=== PATIENT | male | born 1970 | race Two or more races ===

== ENCOUNTER 2020-08-13 09:52 | Outpatient (REF) | payer OTHER, SELFPAY ==
[2020-08-13 14:40] LABS: Alanine Aminotransferase 37 U/L (0-40); Alkaline Phosphatase 105 U/L (39-117); Anion Gap 14 (12-20); Aspartate Amino Transferase 20 U/L (5-37); Bilirubin Total 0.7 mg/dL (0.0-1.0); Blood Urea Nitrogen 12 mg/dL (9-16); Calcium 8.6 mg/dL (8.4-10.2); Carbon Dioxide 24 mmol/L (22-29); Chloride 106 mmol/L (96-108); Cholesterol 111 mg/dL; Estimated Glomerular Filt Rate > 60; Glucose Fasting 85 mg/dL (60-99); HDL Cholesterol 45 mg/dL; LDL Cholesterol Calculated 53 mg/dl; Potassium 3.7 mmol/l (3.3-5.1); Sodium 140 mmol/L (135-145); Total Protein 7.1 g/dL (6.5-8.0); Triglycerides 66 mg/dL
[2020-08-13 14:58] LABS: Creatinine Urine 235.14 mg/dL; Microalbum/Creatinine Ratio Ur 10.6 ug/mg cr
[2020-08-13 15:01] LABS: TSH reflex Free T4 < 0.01 mIU/mL (0.32-4.0)
[2020-08-13 16:08] LABS: Free T4 (Free Thyroxine) 1.56 ng/dL (0.71-1.85)
== END 2020-08-13 09:53 | disposition home or self-care (01) ==
LOC: HO.WFDLDS 09:52
PROVIDERS: Visit Provider Family Medicine
DX: Z00.00 Encounter for general adult medical examination without abnormal findings (principal); R03.0 Elevated blood-pressure reading, without diagnosis of hypertension; E78.5 Hyperlipidemia, unspecified; I10 Essential (primary) hypertension
CPT/HCPCS: 80053; 80061; 82043; 84439; 84443

== ENCOUNTER 2020-09-27 10:20 | Outpatient (REF) | payer OTHER, SELFPAY ==
[2020-09-27 14:29] LABS: Alanine Aminotransferase 57 U/L (0-40); Albumin Level 4.1 g/dL (3.5-5.0); Alkaline Phosphatase 105 U/L (39-117); Aspartate Amino Transferase 24 U/L (5-37); Bilirubin Direct 0.3 mg/dL (0.0-0.5); Bilirubin Total 0.7 mg/dL (0.0-1.0); Total Protein 7.2 g/dL (6.5-8.0)
[2020-09-27 14:39] LABS: Free T4 (Free Thyroxine) 1.43 ng/dL (0.71-1.85); Thyroid Stimulating Hormone < 0.01 uIU/mL (0.32-4.0)
[2020-09-28 19:07] LABS: Triiodothyronine T3 Total 144 ng/dL (76-181)
== END 2020-09-27 10:21 | disposition home or self-care (01) ==
LOC: HO.WFDLDS 10:20
PROVIDERS: Visit Provider Family Medicine
DX: R79.89 Other specified abnormal findings of blood chemistry (principal); B35.1 Tinea unguium
CPT/HCPCS: 80076; 84439; 84443; 84480

== ENCOUNTER 2020-10-12 09:19 | Outpatient (REF) | payer OTHER, SELFPAY ==
[2020-10-12 11:18] LABS: Alanine Aminotransferase 38 U/L (0-40); Alkaline Phosphatase 108 U/L (39-117); Aspartate Amino Transferase 22 U/L (5-37); Bilirubin Direct 0.3 mg/dL (0.0-0.5); Bilirubin Total 0.5 mg/dL (0.0-1.0); Total Protein 6.9 g/dL (6.5-8.0)
== END 2020-10-12 09:20 | disposition home or self-care (01) ==
LOC: HO.WFDLDS 09:19
PROVIDERS: Visit Provider Family Medicine
DX: B35.1 Tinea unguium (principal); R74.01 Elevation of levels of liver transaminase levels
CPT/HCPCS: 80076

== ENCOUNTER 2020-12-03 09:19 | Outpatient (REF) | payer OTHER, SELFPAY ==
--- NOTE | ~2020-12-03 | US_ITS ---
EXAMINATION: US SCROTUM CLINICAL INFORMATION: Left testicular and scrotal pain.. COMPARISON: None TECHNIQUE: A sonogram of the scrotum was performed assessing roach-scale appearance and color Doppler flow. Spectral Doppler analysis of the arterial and venous flow were performed in the testes bilaterally. FINDINGS: RIGHT: Right testicle measures 3.5 x 2.10 x 2.5 cm, volume 9.69 mL. No focal testicular parenchymal lesions are visualized. Spectral Doppler analysis of the arterial and venous flow is normal in the right testis. Right epididymal head is normal in size. No right hydrocele or varicocele is seen. Right epididymal Doppler flow is normal. LEFT: Left testicle measures 3.62 x 1.99 x 2.51 cm, volume 9.49 mL. No focal testicular parenchymal lesions are visualized. Spectral Doppler analysis of the arterial and venous flow is normal in the left testis. Left epididymal head is normal in size. There is a small left hydrocele. No varicocele is seen.. Left epididymal Doppler flow is slightly increased. Just superior to left testes and the epididymis is a heterogenous area appearing contiguous to the inguinal region suspicious for inguinal hernia containing fat. There is no peristalsis or any significant movement with coughing. US/US scrotum doppler IMPRESSION: Most likely left inguinal hernia extending to the root of scrotum containing fat. No peristalsis seen. Patient is tender in this region. Question incarceration. Correlate with clinical exam and if clinically indicated a CT pelvis. Small left hydrocele. Suspect mild left epididymitis. No focal mass seen. Normal scrotum and vascular flow. Normal right epididymis.
--- NOTE | ~2020-12-03 | US_ITS ---
EXAMINATION: US SCROTUM CLINICAL INFORMATION: Left testicular and scrotal pain.. COMPARISON: None TECHNIQUE: A sonogram of the scrotum was performed assessing roach-scale appearance and color Doppler flow. Spectral Doppler analysis of the arterial and venous flow were performed in the testes bilaterally. FINDINGS: RIGHT: Right testicle measures 3.5 x 2.10 x 2.5 cm, volume 9.69 mL. No focal testicular parenchymal lesions are visualized. Spectral Doppler analysis of the arterial and venous flow is normal in the right testis. Right epididymal head is normal in size. No right hydrocele or varicocele is seen. Right epididymal Doppler flow is normal. LEFT: Left testicle measures 3.62 x 1.99 x 2.51 cm, volume 9.49 mL. No focal testicular parenchymal lesions are visualized. Spectral Doppler analysis of the arterial and venous flow is normal in the left testis. Left epididymal head is normal in size. There is a small left hydrocele. No varicocele is seen.. Left epididymal Doppler flow is slightly increased. Just superior to left testes and the epididymis is a heterogenous area appearing contiguous to the inguinal region suspicious for inguinal hernia containing fat. There is no peristalsis or any significant movement with coughing. US/US scrotum IMPRESSION: Most likely left inguinal hernia extending to the root of scrotum containing fat. No peristalsis seen. Patient is tender in this region. Question incarceration. Correlate with clinical exam and if clinically indicated a CT pelvis. Small left hydrocele. Suspect mild left epididymitis. No focal mass seen. Normal scrotum and vascular flow. Normal right epididymis.
[2020-12-03 11:20] LABS: MANUAL DIFF FLAG NO
[2020-12-03 11:31] LABS: Basophils Absolute Auto 0.1 X10*3/uL (0.0-0.2); Basophils Percent Auto 0.7 % (0-2); Eosinophils Absolute Auto 0.2 X10*3/uL (0.0-0.4); Eosinophils Percent Auto 2.4 % (0-4); Hematocrit 43.2 % (42-52); Hemoglobin 14.4 g/dl (14.0-18.0); Imm Gran Abs Auto 0.04 X10*3/uL (0.00-0.03); Imm Gran Pct Auto 0.4 % (0.0-0.4); Lymphocytes Absolute Auto 2.7 X10*3/uL (1.2-4.9); Lymphocytes Percent Auto 27.1 % (20-40); Mean Corpuscular HGB Conc 33.3 g/dl (31.0-36.0); Mean Platelet Volume 10.4 fL (9.4-12.4); Monocytes Absolute Auto 1.4 X10*3/uL (0.1-1.2); Monocytes Percent Auto 13.9 % (2-11); Neutrophils Absolute Auto 5.6 X10*3/uL (2.0-8.3); Neutrophils Percent Auto 55.5 % (45-73); Platelet Count 286 X10*3/uL (160-400); Red Blood Count 5.14 X10*6/uL (4.60-5.80); Red Cell Distribution Width 12.6 % (11.0-16.0); White Blood Count 10.1 X10*3/uL (4.8-10.8)
[2020-12-03 11:53] LABS: Alanine Aminotransferase 39 U/L (0-40); Albumin Level 4.2 g/dL (3.5-5.0); Alkaline Phosphatase 112 U/L (39-117); Anion Gap 14 (12-20); Aspartate Amino Transferase 26 U/L (5-37); Bilirubin Total 0.7 mg/dL (0.0-1.0); Blood Urea Nitrogen 12 mg/dL (9-16); Calcium 9.1 mg/dL (8.4-10.2); Carbon Dioxide 26 mmol/L (22-29); Chloride 103 mmol/L (96-108); Estimated Glomerular Filt Rate > 60; Glucose Random 80 mg/dL (60-115); Lipase 60 U/L (8-78); Sodium 139 mmol/L (135-145); Total Protein 7.5 g/dL (6.5-8.0)
== END 2020-12-03 09:20 | disposition home or self-care (01) ==
LOC: HO.HMGCX 09:19
PROVIDERS: PCP Family Medicine; Visit Provider Nurse Practitioner Family
DX: R10.9 Unspecified abdominal pain (principal); N50.812 Left testicular pain; N50.89 Other specified disorders of the male genital organs
CPT/HCPCS: 36415; 76870; 80053; 83690; 85025; 93975

== ENCOUNTER 2020-12-03 23:14 | Inpatient (IN) | payer OTHER, SELFPAY ==
--- NOTE | ~2020-12-03 | CT_ITS ---
EXAMINATION: CT ABDOMEN AND PELVIS WITH CONTRAST CLINICAL INFORMATION: Concern for incarcerated hernia. COMPARISON: 12/03/2020. TECHNIQUE: Contiguous axial thin section helical images of the abdomen and pelvis were performed following the administration of 100 mL of intravenous Omnipaque 300. The data set was reformatted in the coronal and sagittal planes and reviewed on an independent workstation. DLP: 1045 mGy-cm. FINDINGS: The visualized lung bases are clear. The visualized portions of the heart are unremarkable. The liver is of normal size and attenuation without focal lesions nor intrahepatic biliary ductal dilation. There are 2 calculi within the gallbladder lumen. There is no wall thickening or discernible pericholecystic fluid. The spleen, pancreas, adrenal glands are unremarkable. Both kidneys are of normal size and attenuation without hydronephrosis. Within the lower pole of the right kidney, there is a nonobstructive 4 mm calculus. Within the upper pole of the left kidney, there is a nonobstructive 2 mm calculus. Following the administration of IV contrast, prompt symmetric nephrograms are displayed. There is no abdominal free fluid. There is neither mesenteric nor retroperitoneal lymphadenopathy. There is a left inguinal hernia containing fat and a nubbin of sigmoid colon that extends just to the orifice of the inguinal canal. There is no associated obstruction. Otherwise, unremarkable unopacified loops of small and large bowel are identified. There is no pelvic free fluid. The urinary bladder is unremarkable. There is neither pelvic nor inguinal lymphadenopathy. Bone windows: Neither sclerotic nor lytic bone lesions are identified. CT/CT abdomen pelvis w con IMPRESSION: Left-sided and bowel containing inguinal hernia with a small nubbin of sigmoid colon within the left inguinal canal near the orifice without associated obstruction. There is a small amount of fat infiltration present. Cholelithiasis without evidence of cholecystitis. Nonobstructive renal calculi bilaterally. Automated exposure control (Care Dose) Adjustment of the mA and/or kv according to patient size (this includes techniques or standardized protocols for targeted exams where dose is matched to indication / reason for exam; i.e. extremities or head).
[2020-12-03 23:19] VITALS: BP 138/90; PULSE 85; RESP 24; TEMP 37.2; O2SAT 96; BMI 32.1
[2020-12-03 23:37] LABS: MANUAL DIFF FLAG NO
[2020-12-03 23:38] LABS: Basophils Absolute Auto 0.1 X10*3/uL (0.0-0.2); Basophils Percent Auto 0.6 % (0-2); Eosinophils Absolute Auto 0.2 X10*3/uL (0.0-0.4); Eosinophils Percent Auto 2.1 % (0-4); Hematocrit 41.2 % (42-52); Imm Gran Abs Auto 0.03 X10*3/uL (0.00-0.03); Imm Gran Pct Auto 0.3 % (0.0-0.4); Lymphocytes Absolute Auto 1.6 X10*3/uL (1.2-4.9); Lymphocytes Percent Auto 17.8 % (20-40); Mean Corpuscular Hemoglobin 28.1 pg (27.0-33.0); Mean Corpuscular Volume 82.6 fL (80-98); Mean Platelet Volume 9.9 fL (9.4-12.4); Monocytes Absolute Auto 1.2 X10*3/uL (0.1-1.2); Monocytes Percent Auto 13.5 % (2-11); Neutrophils Absolute Auto 5.9 X10*3/uL (2.0-8.3); Neutrophils Percent Auto 65.7 % (45-73); Platelet Count 251 X10*3/uL (160-400); Red Blood Count 4.99 X10*6/uL (4.60-5.80); Red Cell Distribution Width 12.9 % (11.0-16.0)
[2020-12-04] VITALS (17 sets, daily range): BP systolic 107–160; BP diastolic 59–91; PULSE 65–82; RESP 12–20; TEMP 36.2–36.9; O2SAT 95–99; BMI 32.8
[2020-12-04 00:04] LABS: Alanine Aminotransferase 34 U/L (0-40); Alkaline Phosphatase 112 U/L (39-117); Anion Gap 12 (12-20); Aspartate Amino Transferase 19 U/L (5-37); Bilirubin Total 1.1 mg/dL (0.0-1.0); Blood Urea Nitrogen 13 mg/dL (9-16); Calcium 8.9 mg/dL (8.4-10.2); Carbon Dioxide 23 mmol/L (22-29); Chloride 107 mmol/L (96-108); Estimated Glomerular Filt Rate > 60; Glucose Random 111 mg/dL (60-115); Sodium 138 mmol/L (135-145); Total Protein 7.1 g/dL (6.5-8.0)
--- NOTE | 2020-12-04 00:34 | PC.NURSE ---
Pt moved from 19H into room 19 for eval. MD at bedside for primary eval. Pt is CAOx4, speaking full sentences, reports pain/swelling to left testicle for 1-2 days. Pt had an U/S earlier this morning, states he was called by his MD and told to go to the ER due to testicular torsion. Pt aware of pending urine sample but states he just went to the bathroom. VSS at this time. Plan for IV access once MD is done with physical exam.
--- NOTE | 2020-12-04 00:50 | PC.NURSE ---
IV established, lactic obtained and sent. BCX obtained but no order in the system as of yet. Pt off to CT immediately. Med Rec complete per list provided by pt. Awaiting return from CT.
--- NOTE | 2020-12-04 01:00 | PC.NURSE ---
Pt returns from CT on hospital bed without incident. Pt medicated per DEC for 8/10 pain. VSS at this time. Call ramos within reach, continue to monitor.
[2020-12-04] MEDS: iohexoL 350 MG/ML 100 ML INFUS..BTL 85 ML IV (01:02)
[2020-12-04] MEDS: Morphine Sulfate 2 MG/ML CARTRIDGE 1 MG IVPUSH (01:08)
[2020-12-04 01:12] LABS: Lactic Acid 0.9 mmol/L (0.5-2.0)
--- NOTE | 2020-12-04 01:39 | ED_ITS ---
HPI - Male Genitourinary General Chief complaint: Urogenital-Male Stated complaint: Abnormal ultrasound Time Seen by Provider: 12/04/20 00:29 Source: patient Mode of arrival: ambulatory Limitations: no limitations History of Present Illness HPI Narrative: 50-year-old male otherwise healthy presented with left-sided lower abdominal/left scrotal pain for 24 hours, patient was seen by his PCP as an outpatient had left scrotal ultrasound which showed left inguinal hernia extending to the root of the scrotum, with normal testicular ultrasound and vascular flow to the testicles. Patient came in with persisting of left-sided abdominal pain, no nausea, no vomiting, pain started 24 hours ago, described as severe (10/10) and is constant, pain is localized to the left groin area and left scrotum, no radiation, patient had a normal bowel movement and passing gas as, no fever or chills. Related Data Home Medications Medication Instructions Recorded Confirmed omeprazole 40 mg PO DAILY 12/04/20 12/04/20 Previous Rx's Medication Instructions Recorded amlodipine 5 mg tablet 5 mg PO DAILY 90 Days #90 tab 08/31/20 aspirin 81 mg tablet,delayed 81 mg PO DAILY 90 Days #90 tab 08/31/20 release atorvastatin 40 mg tablet 40 mg PO DAILY 90 Days #90 tab 08/31/20 lisinopril 20 mg tablet 20 mg PO DAILY 90 Days #90 tab 08/31/20 Allergies Allergy/AdvReac Type Severity Reaction Status Date / Time No Known Allergies Allergy Verified 12/03/20 08:18 Review of Systems Review of Systems: All other systems are reviewed and are negative Constitutional: Reports as per HPI and Reports no additional constitutional complaints Eyes: Reports as per HPI and Reports no additional eye complaints Reports system reviewed and no additional complaints, except as documented Cardiovascular: Reports as per HPI and Reports no additional cardiovascular complaints Respiratory: Reports as per HPI and Reports no additional respiratory complaints Gastrointestinal: Reports as per HPI and Reports no additional gastrointestinal complaints Genitourinary: Reports no additional female genitourinary complaints Musculoskeletal: Reports no additional musculoskeletal complaints Skin/Breast: Reports system reviewed and no additional complaints, except as docu Psychiatric: Reports no additional psychiatric complaints Endocrine: Reports no additional endocrine complaints Hematologic/Lymphatic: Reports no additional hematologic/lymphatic complaints Allergic/Immunologic: Reports no additional allergic/immunologic complaints Reports system reviewed and no additional complaints, except as documented and Reports Abnormal speech present [facility] Past Medical History Medical History Anxiety Chest pain due to psychological stress Essential hypertension H/O: CVA (cerebrovascular accident) Hyperlipidemia Insomnia Stroke Social History Social History Advance Directives: No Physical Exam Vital Signs: Vital Signs: Last Vital Signs Temp 98.4 F 12/04/20 00:00 Pulse 71 12/04/20 01:12 Resp 16 12/04/20 01:12 BP 140/87 H 12/04/20 01:12 Pulse Ox 98 12/04/20 00:00 Body Mass Index 32.1 Vital signs have been reviewed as normal and appeared to be correct. Blood pressure in the high range. Heart rate normal. Respiration rate normal. Temperature normal. Oxygen saturation normal. Appearance: Alert. Oriented X3. No acute distress. Head: Normal external exam. Normocephalic. Atraumatic. No Williamson signs noted. No raccoon eyes noted Eyes: PERRLA. EOMI. Conjunctiva and sclera normal. Eyelids normal. ENT: EAC normal. TM's Normal. Pharynx normal. Uvula midline. Moist mucous membranes. No trismus noted. No drooling noted. No muffled voice noted. Neck: Normal inspection. Neck supple. FROM. No adenopathy. Thyroid Normal. No meningeal signs. No neck mass noted. CVS: Normal heart rate and rhythm. Heart sound normal. No murmurs noted. Pulses normal throughout. Respiratory: No respiratory distress. Painless inspiration. Breath sounds normal. No wheezes/rales/rhonchi noted. Chest nontender. No accessory muscle usage noted or decreased air movement noted. Abdomen: Soft, left lower quadrant tenderness, no rebound, no guarding, fullness of the left groin area, very tender to touch, no redness or hotness of the skin above it. Bowel sounds normal in all 4 quadrants. No distention noted. No organomegaly noted. No visible injury noted. exam: Testicle is not tender or swollen, positive cremaster reflex bilaterally, fullness in the left scrotal area likely herniated bowel Back: No CVA tenderness. Full range of motion noted. Skin: Skin warm and dry. Normal skin color. Normal skin turgor. No rashes/lesions/lacerations noted. Extremities: No lower extremity edema. Extremities exhibit normal range of motion. Extremities nontender. Neuro: Oriented X 3. No motor deficit. No sensory deficit. Reflexes normal. Course Course Course Narrative: 50-year-old male for 24 hours of left lower abdominal/left groin pain. Labs are unremarkable. Normal leukocytosis, normal lactic acid. CT/ultrasound abdomen and pelvis and groin are consistent with left inguinal hernia with no obstruction. NPO/pain medication p.r.n./IV fluids/the case discussed with Dr. Iniguez from surgery, who will admit the patient and reassess. MDM - Male Genitourinary Lab Data Attestation: I reviewed the patient's lab results. Result diagrams: 12/03/20 23:28 12/03/20 23:28 Labs: Lab Results 12/03/20 12/03/20 12/03/20 Range/Units 23:28 23:28 23:28 WBC 9.0 (4.8-10.8) X10*3/uL RBC 4.99 (4.60-5.80) X10*6/uL Hgb 14.0 (14.0-18.0) g/dl Hct 41.2 L (42-52) % MCV 82.6 (80-98) fL MCH 28.1 (27.0-33.0) pg MCHC 34.0 (31.0-36.0) g/dl RDW 12.9 (11.0-16.0) % Plt Count 251 (160-400) X10*3/uL MPV 9.9 (9.4-12.4) fL Immature Gran % (Auto) 0.3 (0.0-0.4) % Neut % (Auto) 65.7 (45-73) % Lymph % (Auto) 17.8 L (20-40) % [place] % (Auto) 13.5 H (2-11) % Eos % (Auto) 2.1 (0-4) % Baso % (Auto) 0.6 (0-2) % Lymph # (Auto) 1.6 (1.2-4.9) X10*3/uL [place] # (Auto) 1.2 (0.1-1.2) X10*3/uL Eos # (Auto) 0.2 (0.0-0.4) X10*3/uL Baso # (Auto) 0.1 (0.0-0.2) X10*3/uL Abs Immat Gran (auto) 0.03 (0.00-0.03) X10*3/uL Absolute Neuts (auto) 5.9 (2.0-8.3) X10*3/uL Absolute Nucleated RBC 0.000 (0.0-0.012) X10*3/uL Nucleated RBC % (auto) 0.0 (0.0-0.2) /100WBC Hold Blue Top SEE NOTE Sodium 138 (135-145) mmol/L Potassium 4.0 (3.3-5.1) mmol/L Chloride 107 (96-108) mmol/L Carbon Dioxide 23 (22-29) mmol/L Anion Gap 12 (12-20) BUN 13 (9-16) mg/dL Creatinine 0.94 (0.5-1.4) mg/dL Estim Creat Clear Calc 113.0 Estimated GFR > 60 Random Glucose 111 D (60-115) mg/dL Lactic Acid (0.5-2.0) mmol/L Calcium 8.9 (8.4-10.2) mg/dL Total Bilirubin 1.1 H (0.0-1.0) mg/dL AST 19 (5-37) U/L ALT 34 (0-40) U/L Alkaline Phosphatase 112 (39-117) U/L Total Protein 7.1 (6.5-8.0) g/dL Albumin 4.0 (3.5-5.0) g/dL 12/04/20 Range/Units 00:45 WBC (4.8-10.8) X10*3/uL RBC (4.60-5.80) X10*6/uL Hgb (14.0-18.0) g/dl Hct (42-52) % MCV (80-98) fL MCH (27.0-33.0) pg MCHC (31.0-36.0) g/dl RDW (11.0-16.0) % Plt Count (160-400) X10*3/uL MPV (9.4-12.4) fL Immature Gran % (Auto) (0.0-0.4) % Neut % (Auto) (45-73) % Lymph % (Auto) (20-40) % [place] % (Auto) (2-11) % Eos % (Auto) (0-4) % Baso % (Auto) (0-2) % Lymph # (Auto) (1.2-4.9) X10*3/uL [place] # (Auto) (0.1-1.2) X10*3/uL Eos # (Auto) (0.0-0.4) X10*3/uL Baso # (Auto) (0.0-0.2) X10*3/uL Abs Immat Gran (auto) (0.00-0.03) X10*3/uL Absolute Neuts (auto) (2.0-8.3) X10*3/uL Absolute Nucleated RBC (0.0-0.012) X10*3/uL Nucleated RBC % (auto) (0.0-0.2) /100WBC Hold Blue Top Sodium (135-145) mmol/L Potassium (3.3-5.1) mmol/L Chloride (96-108) mmol/L Carbon Dioxide (22-29) mmol/L Anion Gap (12-20) BUN (9-16) mg/dL Creatinine (0.5-1.4) mg/dL Estim Creat Clear Calc Estimated GFR Random Glucose (60-115) mg/dL Lactic Acid 0.9 (0.5-2.0) mmol/L Calcium (8.4-10.2) mg/dL Total Bilirubin (0.0-1.0) mg/dL AST (5-37) U/L ALT (0-40) U/L Alkaline Phosphatase (39-117) U/L Total Protein (6.5-8.0) g/dL Albumin (3.5-5.0) g/dL Imaging Data CT scan - abdomen: Radiologist's impression: Left-sided and bowel containing inguinal hernia with a small nubbin of sigmoid colon within the left inguinal canal near the orifice without associated obstruction. There is a small amount of fat infiltration present. Cholelithiasis without evidence of cholecystitis. Nonobstructive renal calculi bilaterally. Scrotal ultrasound: Radiologist's impression: Most likely left inguinal hernia extending to the root of scrotum containing fat. No peristalsis seen. Patient is tender in this region. Question incarceration. Correlate with clinical exam and if clinically indicated a CT pelvis. Small left hydrocele. Suspect mild left epididymitis. No focal mass seen. Normal scrotum and vascular flow. Normal right epididymis. Discharge Plan Discharge Clinical Impression: Left testicular pain, Inguinal hernia of left side without obstruction or gangrene Patient Disposition: Admitted As Inpatient Prescriptions: No Action omeprazole 20 mg capsule,delayed release(DR/EC) 40 mg PO DAILY RF: 0 amlodipine 5 mg tablet 5 mg PO DAILY 90 Days Qty: 90 RF: 3 aspirin 81 mg tablet,delayed release (DR/EC) 81 mg PO DAILY 90 Days Qty: 90 RF: 3 atorvastatin 40 mg tablet 40 mg PO DAILY 90 Days Qty: 90 RF: 3 lisinopril 20 mg tablet 20 mg PO DAILY 90 Days Qty: 90 RF: 3
--- NOTE | 2020-12-04 02:03 | PC.NURSE ---
Pt ambulating to the bathroom to provide urine sample. Pt ambulating with a land/steady gait.
--- NOTE | 2020-12-04 02:05 | PC.NURSE ---
automotive diagnostic technician at bedside to obtain a T&S.
--- NOTE | 2020-12-04 02:27 | PC.NURSE ---
This RN contacting surgeon regarding whether or not blood cultures were need prior to administering ABX. Per MD Iniguez, only to draw cultures if they were ordered. This RN advising MD that a lactic was ordered without BCX by KETURAH BISWAS. Per MD Iniguez, pt to draw cultures if they are ordered. MD advised by this RN that they were not ordered at this time. Per , Ancef to be administered only prior to surgery and to change the order.
[2020-12-04 02:54] LABS: Appearance Urine CLEAR; Color Urine DARK YELLOW; Glucose Urine UA NEG (NEG); Leukocyte Esterase Urine NEG (NEG); Nitrite Urine NEG (NEG); PH 6.5 (5.0-8.0); Urine Blood 1+ (NEG); Urine Ketones NEG (NEG); Urine Protein NEG (NEG-TRACE)
[2020-12-04 03:21] LABS: Influenza A PCR NEGATIVE (Negative); Influenza B PCR NEGATIVE (Negative); Resp Syncy Virus RNA Qual PCR NEGATIVE (Negative); SARS COV2 PCR INHOUSE NEGATIVE (Negative)
[2020-12-04 03:23] LABS: Mucus Urine TRACE /LPF; Squamous Epithelial Cell Urine TRACE /LPF; WBC Urine 0-2 /HPF (0-4)
--- NOTE | 2020-12-04 03:58 | PC.NURSE ---
This RN and electrostatic powder coating technician at bedside. Pt carrying a large amount of harris, $1,126, secured in an envelope, sealed and given to security to place in safe for safe keeping. Pt assisted into POC, provided with warm blankets, aware of surgery scheduled for 0900. Call ramos within reach, continue to monitor.
--- NOTE | 2020-12-04 04:54 | PC.NURSE ---
Report given to M/S RN. xray tech preparing pt for transport to floor.
--- NOTE | 2020-12-04 09:02 | PM.ANESCN ---
History of Present Illness Consult details Consult date: 12/04/20 [facility] Past Medical History Medical History Anxiety Chest pain due to psychological stress Essential hypertension H/O: CVA (cerebrovascular accident) Hyperlipidemia Insomnia Family History Family History (Updated 12/04/20 @ 09:25 by Marcela Iniguez MD) Mother No problems noted. Father No problems noted. Brother No problems noted. Brother No problems noted. Brother No problems noted. Sister No problems noted. Daughter No problems noted. Surgical History Surgical History (Updated 12/04/20 @ 11:12 by Marcela Iniguez MD) History of left inguinal hernia repair Social History Social History (Updated 12/04/20 @ 09:25 by Marcela Iniguez MD) Household Members: Spouse Housing: Apartment Alcohol intake: never Smoking Status: Former smoker service: No Current occupational status: employed Meds Allergies Allergy/AdvReac Type Severity Reaction Status Date / Time No Known Allergies Allergy Verified 12/04/20 09:26 Active Medications: Current Medications Generic Name Dose Route Start Last Admin Trade Name Freq PRN Reason Stop Dose Admin Acetaminophen 650 mg 12/04/20 01:50 Acetaminophen 325 Mg Tablet PO Q4H PRN Fever Amlodipine Besylate 5 mg 12/04/20 09:00 Amlodipine Besylate 5 Mg Tablet PO DAILY [facility] Protocol Atorvastatin Calcium 40 mg 12/04/20 09:00 Atorvastatin Calcium 40 Mg Tablet PO DAILY [facility] Diphenhydramine HCl 25 mg 12/04/20 01:50 Diphenhydramine Hcl 25 Mg Tablet PO Q4H PRN itching Hydromorphone HCl 0.5 mg 12/04/20 01:50 Hydromorphone Hcl 0.5 Mg/0.5 Ml Syringe IVPUSH Q3H PRN Pain, Moderate (Pain Scale 4-6 Lisinopril 20 mg 12/04/20 09:00 Lisinopril 20 Mg Tablet PO DAILY [facility] Protocol Omeprazole 40 mg 12/04/20 09:00 Omeprazole 20 Mg Capsule.Dr PO DAILY [facility] Ondansetron HCl 4 mg 12/04/20 01:50 Ondansetron Hcl 4 Mg/2 Ml Vial IVPUSH Q4H PRN Nausea Oxycodone HCl 5 mg 12/04/20 01:50 Oxycodone Hcl Immed Release 5 Mg Tablet PO Q3H PRN Pain, Moderate (Pain Scale 4-6 Oxycodone HCl 10 mg 12/04/20 01:50 Oxycodone Hcl Immed Release 5 Mg Tablet PO Q3H PRN Pain, Severe (Pain Scale 7-10) Home Medications Medication Instructions Recorded Confirmed Last Taken Type omeprazole 40 mg PO DAILY 12/04/20 12/05/20 12/03/20 08:00 History terbinafine HCl 250 mg tablet 250 mg PO DAILY 12/06/20 Unknown History Physical Exam Vital Signs: Vital Signs: Last Vital Signs Temp 97.5 F 12/04/20 07:49 Pulse 70 12/04/20 07:49 Resp 16 12/04/20 07:49 BP 138/86 12/04/20 07:49 Pulse Ox 97 12/04/20 07:49 Body Mass Index 32.8 Results Labs Result diagrams: 12/03/20 23:28 12/03/20 23:28 Labs: Abnormal lab results 12/03/20 12/03/20 12/04/20 Range/Units 23:28 23:28 02:29 Hct 41.2 L (42-52) % Lymph % (Auto) 17.8 L (20-40) % [place] % (Auto) 13.5 H (2-11) % Total Bilirubin 1.1 H (0.0-1.0) mg/dL Urine Blood 1+ H (NEG) Urine RBC 15-29 H (0) /HPF Short CBC 12/03/20 Range/Units 23:28 WBC 9.0 (4.8-10.8) X10*3/uL Hgb 14.0 (14.0-18.0) g/dl Hct 41.2 L (42-52) % Plt Count 251 (160-400) X10*3/uL BMP 12/03/20 23:28 Sodium 138 Potassium 4.0 Chloride 107 Carbon Dioxide 23 BUN 13 Creatinine 0.94 Calcium 8.9 Liver Function 12/03/20 Range/Units 23:28 Total Bilirubin 1.1 H (0.0-1.0) mg/dL AST 19 (5-37) U/L ALT 34 (0-40) U/L Alkaline Phosphatase 112 (39-117) U/L Albumin 4.0 (3.5-5.0) g/dL Urine 12/04/20 Range/Units 02:29 Urine Color DARK YELLOW Urine Appearance CLEAR Urine pH 6.5 (5.0-8.0) Ur Specific [place] 1.010 (1.005-1.025) Urine Protein NEG (NEG-TRACE) MG/DL Urine Glucose (UA) NEG (NEG) MG/DL All other labs normal.
--- NOTE | 2020-12-04 09:04 | HO.ANESPROP2 ---
[facility] Active Problems Active Problems: All Active Problems (Updated 12/04/20 @ 01:48 by Bennie Estrada MD) Inguinal hernia of left side without obstruction or gangrene (Acute) Swelling of left half of scrotum (Acute) Left testicular pain (Acute) Abdominal pain (Acute) Elevated liver transaminase level (Acute) Dermatophytosis, nail (Acute) Low TSH level (Acute) Insomnia (Acute) Anxiety (Acute) Chest pain due to psychological stress (Acute) H/O: CVA (cerebrovascular accident) (Acute) Routine physicl lab exam (Acute) Hyperlipidemia (Acute) Essential hypertension (Acute) Past Medical History Medical History Anxiety Chest pain due to psychological stress Essential hypertension H/O: CVA (cerebrovascular accident) Hyperlipidemia Insomnia Stroke Social History Social History Household Members: Spouse Housing: Apartment Do you presently have visiting nurse or other home services: No Smoking Status: Never smoker Use of substances other than those prescribed or required for medical reasons: No Have you been hit, kicked, punched, or otherwise hurt by someone within the past year? If so, by whom?: No Do you feel safe in your current relationship?: No Is there a partner from a previous relationship who is making you feel unsafe now?: No Are you made to feel afraid or neglected: No Spiritual Healthcare Practices: none Yazdanism Healthcare Practices: none Cultural Healthcare Practices: none Advance Directives: No Do you have thoughts of harming others: None Do you have a plan to hurt others: No Plan Recently lost weight without trying: No Meds Allergies Allergy/AdvReac Type Severity Reaction Status Date / Time No Known Allergies Allergy Verified 12/03/20 08:18 Active Medications: Current Medications Generic Name Dose Route Start Last Admin Trade Name Freq PRN Reason Stop Dose Admin Acetaminophen 650 mg 12/04/20 01:50 Acetaminophen 325 Mg Tablet PO Q4H PRN Fever Amlodipine Besylate 5 mg 12/04/20 09:00 Amlodipine Besylate 5 Mg Tablet PO DAILY [facility] Protocol Atorvastatin Calcium 40 mg 12/04/20 09:00 Atorvastatin Calcium 40 Mg Tablet PO DAILY [facility] Diphenhydramine HCl 25 mg 12/04/20 01:50 Diphenhydramine Hcl 25 Mg Tablet PO Q4H PRN itching Hydromorphone HCl 0.5 mg 12/04/20 01:50 Hydromorphone Hcl 0.5 Mg/0.5 Ml Syringe IVPUSH Q3H PRN Pain, Moderate (Pain Scale 4-6 Lisinopril 20 mg 12/04/20 09:00 Lisinopril 20 Mg Tablet PO DAILY [facility] Protocol Omeprazole 40 mg 12/04/20 09:00 Omeprazole 20 Mg Capsule.Dr PO DAILY [facility] Ondansetron HCl 4 mg 12/04/20 01:50 Ondansetron Hcl 4 Mg/2 Ml Vial IVPUSH Q4H PRN Nausea Oxycodone HCl 5 mg 12/04/20 01:50 Oxycodone Hcl Immed Release 5 Mg Tablet PO Q3H PRN Pain, Moderate (Pain Scale 4-6 Oxycodone HCl 10 mg 12/04/20 01:50 Oxycodone Hcl Immed Release 5 Mg Tablet PO Q3H PRN Pain, Severe (Pain Scale 7-10) Home Medications Medication Instructions Recorded Confirmed Last Taken Type omeprazole 40 mg PO DAILY 12/04/20 12/04/20 12/03/20 08:00 History Exam Exam Date and Time: December 04, 2020 09 Height,Weight and Vital Signs: Height 5 ft 11 in Weight 106.81 kg Last Vital Signs Temp 97.5 F 12/04/20 07:49 Pulse 70 12/04/20 07:49 Resp 16 12/04/20 07:49 BP 138/86 12/04/20 07:49 Pulse Ox 97 12/04/20 07:49 Pertinent Lab Results Pertinent Lab Results: Laboratory Tests 12/03/20 12/03/20 12/03/20 23:28 23:28 23:28 WBC 9.0 RBC 4.99 Hgb 14.0 Hct 41.2 L MCV 82.6 MCH 28.1 MCHC 34.0 RDW 12.9 Plt Count 251 MPV 9.9 Immature Gran % (Auto) 0.3 Neut % (Auto) 65.7 Lymph % (Auto) 17.8 L [place] % (Auto) 13.5 H Eos % (Auto) 2.1 Baso % (Auto) 0.6 Lymph # (Auto) 1.6 [place] # (Auto) 1.2 Eos # (Auto) 0.2 Baso # (Auto) 0.1 Abs Immat Gran (auto) 0.03 Absolute Neuts (auto) 5.9 Absolute Nucleated RBC 0.000 Nucleated RBC % (auto) 0.0 Hold Blue Top SEE NOTE Sodium 138 Potassium 4.0 Chloride 107 Carbon Dioxide 23 Anion Gap 12 BUN 13 Creatinine 0.94 Estim Creat Clear Calc 113.0 Estimated GFR > 60 Random Glucose 111 D Lactic Acid Calcium 8.9 Total Bilirubin 1.1 H AST 19 ALT 34 Alkaline Phosphatase 112 Total Protein 7.1 Albumin 4.0 Urine Color Urine Appearance Urine pH Ur Specific [place] Urine Protein Urine Glucose (UA) Urine Ketones Urine Blood Urine Nitrite Ur Leukocyte Esterase Urine RBC Urine WBC Ur Squamous Epith Cells Urine Bacteria Urine Mucus Coronavirus (PCR) Influenza Type A (PCR) Influenza Type B (PCR) RSV RNA Qual (PCR) Blood Type Antibody Screen 12/04/20 12/04/20 12/04/20 00:45 02:29 02:29 WBC RBC Hgb Hct MCV MCH MCHC RDW Plt Count MPV Immature Gran % (Auto) Neut % (Auto) Lymph % (Auto) [place] % (Auto) Eos % (Auto) Baso % (Auto) Lymph # (Auto) [place] # (Auto) Eos # (Auto) Baso # (Auto) Abs Immat Gran (auto) Absolute Neuts (auto) Absolute Nucleated RBC Nucleated RBC % (auto) Hold Blue Top Sodium Potassium Chloride Carbon Dioxide Anion Gap BUN Creatinine Estim Creat Clear Calc Estimated GFR Random Glucose Lactic Acid 0.9 Calcium Total Bilirubin AST ALT Alkaline Phosphatase Total Protein Albumin Urine Color DARK YELLOW Urine Appearance CLEAR Urine pH 6.5 Ur Specific [place] 1.010 Urine Protein NEG Urine Glucose (UA) NEG Urine Ketones NEG Urine Blood 1+ H Urine Nitrite NEG Ur Leukocyte Esterase NEG Urine RBC 15-29 H Urine WBC 0-2 Ur Squamous Epith Cells TRACE Urine Bacteria NONE Urine Mucus TRACE Coronavirus (PCR) Influenza Type A (PCR) Influenza Type B (PCR) RSV RNA Qual (PCR) Blood Type A Positive Antibody Screen POSITIVE 12/04/20 02:34 WBC RBC Hgb Hct MCV MCH MCHC RDW Plt Count MPV Immature Gran % (Auto) Neut % (Auto) Lymph % (Auto) [place] % (Auto) Eos % (Auto) Baso % (Auto) Lymph # (Auto) [place] # (Auto) Eos # (Auto) Baso # (Auto) Abs Immat Gran (auto) Absolute Neuts (auto) Absolute Nucleated RBC Nucleated RBC % (auto) Hold Blue Top Sodium Potassium Chloride Carbon Dioxide Anion Gap BUN Creatinine Estim Creat Clear Calc Estimated GFR Random Glucose Lactic Acid Calcium Total Bilirubin AST ALT Alkaline Phosphatase Total Protein Albumin Urine Color Urine Appearance Urine pH Ur Specific [place] Urine Protein Urine Glucose (UA) Urine Ketones Urine Blood Urine Nitrite Ur Leukocyte Esterase Urine RBC Urine WBC Ur Squamous Epith Cells Urine Bacteria Urine Mucus Coronavirus (PCR) NEGATIVE Influenza Type A (PCR) NEGATIVE Influenza Type B (PCR) NEGATIVE RSV RNA Qual (PCR) NEGATIVE Blood Type Antibody Screen
--- NOTE | 2020-12-04 09:05 | HO.ANESPROP2 ---
[facility] Active Problems Active Problems: All Active Problems (Updated 12/04/20 @ 01:48 by Bennie Estrada MD) Inguinal hernia of left side without obstruction or gangrene (Acute) Swelling of left half of scrotum (Acute) Left testicular pain (Acute) Abdominal pain (Acute) Elevated liver transaminase level (Acute) Dermatophytosis, nail (Acute) Low TSH level (Acute) Insomnia (Acute) Anxiety (Acute) Chest pain due to psychological stress (Acute) H/O: CVA (cerebrovascular accident) (Acute) Routine physicl lab exam (Acute) Hyperlipidemia (Acute) Essential hypertension (Acute) Past Medical History Medical History Anxiety Chest pain due to psychological stress Essential hypertension H/O: CVA (cerebrovascular accident) Hyperlipidemia Insomnia Stroke Social History Social History Household Members: Spouse Housing: Apartment Do you presently have visiting nurse or other home services: No Smoking Status: Never smoker Use of substances other than those prescribed or required for medical reasons: No Have you been hit, kicked, punched, or otherwise hurt by someone within the past year? If so, by whom?: No Do you feel safe in your current relationship?: No Is there a partner from a previous relationship who is making you feel unsafe now?: No Are you made to feel afraid or neglected: No Spiritual Healthcare Practices: none Restoration Healthcare Practices: none Cultural Healthcare Practices: none Advance Directives: No Do you have thoughts of harming others: None Do you have a plan to hurt others: No Plan Recently lost weight without trying: No Meds Allergies Allergy/AdvReac Type Severity Reaction Status Date / Time No Known Allergies Allergy Verified 12/03/20 08:18 Active Medications: Current Medications Generic Name Dose Route Start Last Admin Trade Name Freq PRN Reason Stop Dose Admin Acetaminophen 650 mg 12/04/20 01:50 Acetaminophen 325 Mg Tablet PO Q4H PRN Fever Amlodipine Besylate 5 mg 12/04/20 09:00 Amlodipine Besylate 5 Mg Tablet PO DAILY [facility] Protocol Atorvastatin Calcium 40 mg 12/04/20 09:00 Atorvastatin Calcium 40 Mg Tablet PO DAILY [facility] Diphenhydramine HCl 25 mg 12/04/20 01:50 Diphenhydramine Hcl 25 Mg Tablet PO Q4H PRN itching Hydromorphone HCl 0.5 mg 12/04/20 01:50 Hydromorphone Hcl 0.5 Mg/0.5 Ml Syringe IVPUSH Q3H PRN Pain, Moderate (Pain Scale 4-6 Lisinopril 20 mg 12/04/20 09:00 Lisinopril 20 Mg Tablet PO DAILY [facility] Protocol Omeprazole 40 mg 12/04/20 09:00 Omeprazole 20 Mg Capsule.Dr PO DAILY [facility] Ondansetron HCl 4 mg 12/04/20 01:50 Ondansetron Hcl 4 Mg/2 Ml Vial IVPUSH Q4H PRN Nausea Oxycodone HCl 5 mg 12/04/20 01:50 Oxycodone Hcl Immed Release 5 Mg Tablet PO Q3H PRN Pain, Moderate (Pain Scale 4-6 Oxycodone HCl 10 mg 12/04/20 01:50 Oxycodone Hcl Immed Release 5 Mg Tablet PO Q3H PRN Pain, Severe (Pain Scale 7-10) Home Medications Medication Instructions Recorded Confirmed Last Taken Type omeprazole 40 mg PO DAILY 12/04/20 12/04/20 12/03/20 08:00 History Exam Exam Date and Time: December 04, 2020904 Height,Weight and Vital Signs: Height 5 ft 11 in Weight 106.81 kg Last Vital Signs Temp 97.5 F 12/04/20 07:49 Pulse 70 12/04/20 07:49 Resp 16 12/04/20 07:49 BP 138/86 12/04/20 07:49 Pulse Ox 97 12/04/20 07:49 Pertinent Lab Results Pertinent Lab Results: Laboratory Tests 12/03/20 12/03/20 12/03/20 23:28 23:28 23:28 WBC 9.0 RBC 4.99 Hgb 14.0 Hct 41.2 L MCV 82.6 MCH 28.1 MCHC 34.0 RDW 12.9 Plt Count 251 MPV 9.9 Immature Gran % (Auto) 0.3 Neut % (Auto) 65.7 Lymph % (Auto) 17.8 L [place] % (Auto) 13.5 H Eos % (Auto) 2.1 Baso % (Auto) 0.6 Lymph # (Auto) 1.6 [place] # (Auto) 1.2 Eos # (Auto) 0.2 Baso # (Auto) 0.1 Abs Immat Gran (auto) 0.03 Absolute Neuts (auto) 5.9 Absolute Nucleated RBC 0.000 Nucleated RBC % (auto) 0.0 Hold Blue Top SEE NOTE Sodium 138 Potassium 4.0 Chloride 107 Carbon Dioxide 23 Anion Gap 12 BUN 13 Creatinine 0.94 Estim Creat Clear Calc 113.0 Estimated GFR > 60 Random Glucose 111 D Lactic Acid Calcium 8.9 Total Bilirubin 1.1 H AST 19 ALT 34 Alkaline Phosphatase 112 Total Protein 7.1 Albumin 4.0 Urine Color Urine Appearance Urine pH Ur Specific [place] Urine Protein Urine Glucose (UA) Urine Ketones Urine Blood Urine Nitrite Ur Leukocyte Esterase Urine RBC Urine WBC Ur Squamous Epith Cells Urine Bacteria Urine Mucus Coronavirus (PCR) Influenza Type A (PCR) Influenza Type B (PCR) RSV RNA Qual (PCR) Blood Type Antibody Screen 12/04/20 12/04/20 12/04/20 00:45 02:29 02:29 WBC RBC Hgb Hct MCV MCH MCHC RDW Plt Count MPV Immature Gran % (Auto) Neut % (Auto) Lymph % (Auto) [place] % (Auto) Eos % (Auto) Baso % (Auto) Lymph # (Auto) [place] # (Auto) Eos # (Auto) Baso # (Auto) Abs Immat Gran (auto) Absolute Neuts (auto) Absolute Nucleated RBC Nucleated RBC % (auto) Hold Blue Top Sodium Potassium Chloride Carbon Dioxide Anion Gap BUN Creatinine Estim Creat Clear Calc Estimated GFR Random Glucose Lactic Acid 0.9 Calcium Total Bilirubin AST ALT Alkaline Phosphatase Total Protein Albumin Urine Color DARK YELLOW Urine Appearance CLEAR Urine pH 6.5 Ur Specific [place] 1.010 Urine Protein NEG Urine Glucose (UA) NEG Urine Ketones NEG Urine Blood 1+ H Urine Nitrite NEG Ur Leukocyte Esterase NEG Urine RBC 15-29 H Urine WBC 0-2 Ur Squamous Epith Cells TRACE Urine Bacteria NONE Urine Mucus TRACE Coronavirus (PCR) Influenza Type A (PCR) Influenza Type B (PCR) RSV RNA Qual (PCR) Blood Type A Positive Antibody Screen POSITIVE 12/04/20 02:34 WBC RBC Hgb Hct MCV MCH MCHC RDW Plt Count MPV Immature Gran % (Auto) Neut % (Auto) Lymph % (Auto) [place] % (Auto) Eos % (Auto) Baso % (Auto) Lymph # (Auto) [place] # (Auto) Eos # (Auto) Baso # (Auto) Abs Immat Gran (auto) Absolute Neuts (auto) Absolute Nucleated RBC Nucleated RBC % (auto) Hold Blue Top Sodium Potassium Chloride Carbon Dioxide Anion Gap BUN Creatinine Estim Creat Clear Calc Estimated GFR Random Glucose Lactic Acid Calcium Total Bilirubin AST ALT Alkaline Phosphatase Total Protein Albumin Urine Color Urine Appearance Urine pH Ur Specific [place] Urine Protein Urine Glucose (UA) Urine Ketones Urine Blood Urine Nitrite Ur Leukocyte Esterase Urine RBC Urine WBC Ur Squamous Epith Cells Urine Bacteria Urine Mucus Coronavirus (PCR) NEGATIVE Influenza Type A (PCR) NEGATIVE Influenza Type B (PCR) NEGATIVE RSV RNA Qual (PCR) NEGATIVE Blood Type Antibody Screen
--- NOTE | 2020-12-04 09:10 | MHC.CM.PN ---
PATIENT LIVES WITH HIS LONG-TIME SIGNIFICANT OTHER. HE USES NO DME OR VNA SERVICES. TRUCK IS IN THE LOT. PATIENT REFUSES TO NAME A HCP AGENT. WHEN ASKED IF THERE IS ANYONE IN HIS LIFE THAT HE TRUSTS TO ASSIGN AGENT, HE DENIES. HCP EXPLAINED TO PATIENT, AND HE STILL DENIES. PATIENT ALSO FEELS LIKE HE HAS DONE SOMETHING IN HIS LIFE THAT MUST HAVE CAUSED THIS TO HAPPEN . HE IS EXPLAINING TROUBLES WITH NEIGHBORS, AND IS DIFFICULT TO REDIRECT TO CONVERSATION ABOUT HCP OR HIS INPATIENT STAY. PATIENT IS SCHEDULED FOR OR TODAY AND HE IS AWARE THAT CASE MANAGEMENT WILL RETURN.
--- NOTE | 2020-12-04 09:20 | PM.HPGS ---
History of Present Illness History of Present Illness Date of Service: 12/04/20 Chief complaint: Incarcerated left inguinal hernia Narrative: Carlos Neri is a 50 year old male who presented to the emergency department early this morning with a 2 day history of initially diarrhea and then constipation and then progression of left groin discomfort. Patient denies pain of this sort previously. Patient reports 48 hours ago he experienced diarrhea for 24 hour time frame. 24 hours he experience constipation for 24 hours. He had a bowel movement last evening before came to the emergency department which was normal. Last meal was yesterday morning at 11:30 a.m.. He denies nausea or vomiting, fever, chills, shortness of breath, chest pain. Patient was seen in the emergency department found to have a left groin lump. CT scan of the abdomen pelvis showed a left inguinal hernia with mostly fat within the inguinal canal and 1 small piece of the sigmoid colon without inflammatory changes or evidence of obstruction. Patient also underwent ultrasound of the left testicle which was normal. On physical examination patient had significant tenderness and the left inguinal hernia was unable to be reduced given the patient's discomfort with examination. Patient was admitted to the surgical service for plan for operative reduction repair of left inguinal hernia with mesh. Review of Systems Review of Systems: Yes all other systems are reviewed and are negative Constitutional: Constitutional: Denies chills, Denies daytime sleepiness, Reports difficulty sleeping, Denies excessive sweating, Denies fatigue, Denies fever(s), Denies headache(s), Denies night sweats, Denies snoring, Denies stops breathing during sleep and Denies weakness Eyes: Eyes: Denies blurry vision, Denies other visual disturbances and Reports requires corrective lenses ENT: Denies bleeding gums, Denies dysphagia, Denies dizziness, Denies headache(s), Denies hearing loss, Denies sinus pain and Denies sore throat Cardiovascular: Cardiovascular: Denies chest pain, Denies chest pain at rest, Denies chest pain with activity, Denies syncope, Denies irregular heart rhythm, Denies leg edema, Denies lightheadedness, Denies dyspnea, Denies dyspnea on exertion and Denies orthopnea Respiratory: Respiratory: Denies chest congestion, Denies cough, Denies dyspnea, Denies dyspnea on exertion, Denies snoring and Denies wheezing Gastrointestinal: Gastrointestinal: Denies abdominal pain, Denies melena, Denies bloating, Denies constipation, Denies dysphagia, Denies heartburn, Denies diarrhea, Denies nausea, Denies vomiting and Reports other (Left groin pain) Genitourinary: Genitourinary: Denies hematuria, Denies difficulty urinating and Denies nocturia Musculoskeletal: Musculoskeletal: Denies abnormal gait, Denies back pain, Denies deformity, Denies arthralgias, Denies joint swelling and Denies stiffness Integumentary/Breasts: Skin/Breast: Denies breast pain, Denies breast mass and Denies nipple discharge Neurologic: Denies abnormal gait, Denies dizziness, Denies syncope, Denies headache(s), Denies seizure-like activity and Denies weakness Psychiatric: Psychiatric: Reports abnormal sleep pattern, Reports anxiety, Reports depression and Denies panic attacks Endocrine: Endocrine: Denies excessive sweating, Denies fatigue, Denies heat intolerance, Denies polyphagia, Denies polydipsia and Denies polyuria Hematologic/Lymphatic: Hematologic/Lymphatic: Denies easy bleeding and Denies easy bruising Allergic/Immunologic: Allergic/Immunologic: Denies wheezing PMFSH Past Medical History Medical History (Updated 12/04/20 @ 09:24 by Marcela Iniguez MD) Anxiety Chest pain due to psychological stress Essential hypertension H/O: CVA (cerebrovascular accident) Hyperlipidemia Insomnia Cognitive capacity: Normal Functional capacity: independent ambulation Family History Family History (Updated 12/04/20 @ 09:25 by Marcela Iniguez MD) Mother No problems noted. Father No problems noted. Brother No problems noted. Brother No problems noted. Brother No problems noted. Sister No problems noted. Daughter No problems noted. Family history: reviewed and not pertinent Surgical History Surgical History (Updated 12/04/20 @ 09:24 by Marcela Iniguez MD) No pertinent past surgical history Social History Social History (Updated 12/04/20 @ 09:25 by Marcela Iniguez MD) Household Members: Spouse Housing: Apartment Do you presently have visiting nurse or other home services: No Alcohol intake: never Smoking Status: Never smoker Use of substances other than those prescribed or required for medical reasons: No Have you been hit, kicked, punched, or otherwise hurt by someone within the past year? If so, by whom?: No Do you feel safe in your current relationship?: No Is there a partner from a previous relationship who is making you feel unsafe now?: No Are you made to feel afraid or neglected: No Spiritual Healthcare Practices: none Hinduism Healthcare Practices: none Cultural Healthcare Practices: none Advance Directives: No Do you have thoughts of harming others: None Do you have a plan to hurt others: No Plan Recently lost weight without trying: No service: No Current occupational status: employed Travel History Ebola Risk: Travel/Contact With Anyone From Affected Area/s: No Has Patient Experienced Ebola Symptoms: No History of recent travel: No Meds Allergies Allergy/AdvReac Type Severity Reaction Status Date / Time No Known Allergies Allergy Verified 12/04/20 09:26 Active Medications: Current Medications Generic Name Dose Route Start Last Admin Trade Name Freq PRN Reason Stop Dose Admin Acetaminophen 650 mg 12/04/20 01:50 Acetaminophen 325 Mg Tablet PO Q4H PRN Fever Amlodipine Besylate 5 mg 12/04/20 09:00 Amlodipine Besylate 5 Mg Tablet PO DAILY [facility] Protocol Atorvastatin Calcium 40 mg 12/04/20 09:00 Atorvastatin Calcium 40 Mg Tablet PO DAILY [facility] Diphenhydramine HCl 25 mg 12/04/20 01:50 Diphenhydramine Hcl 25 Mg Tablet PO Q4H PRN itching Hydromorphone HCl 0.5 mg 12/04/20 01:50 Hydromorphone Hcl 0.5 Mg/0.5 Ml Syringe IVPUSH Q3H PRN Pain, Moderate (Pain Scale 4-6 Lisinopril 20 mg 12/04/20 09:00 Lisinopril 20 Mg Tablet PO DAILY [facility] Protocol Omeprazole 40 mg 12/04/20 09:00 Omeprazole 20 Mg Capsule.Dr PO DAILY [facility] Ondansetron HCl 4 mg 12/04/20 01:50 Ondansetron Hcl 4 Mg/2 Ml Vial IVPUSH Q4H PRN Nausea Oxycodone HCl 5 mg 12/04/20 01:50 Oxycodone Hcl Immed Release 5 Mg Tablet PO Q3H PRN Pain, Moderate (Pain Scale 4-6 Oxycodone HCl 10 mg 12/04/20 01:50 Oxycodone Hcl Immed Release 5 Mg Tablet PO Q3H PRN Pain, Severe (Pain Scale 7-10) Home Medications Medication Instructions Recorded Confirmed Last Taken Type omeprazole 40 mg PO DAILY 12/04/20 12/04/20 12/03/20 08:00 History Physical Exam Vital Signs: Vital Signs: Last Vital Signs Temp 97.5 F 12/04/20 07:49 Pulse 70 12/04/20 07:49 Resp 16 12/04/20 07:49 BP 138/86 12/04/20 07:49 Pulse Ox 97 12/04/20 07:49 Body Mass Index 32.8 Const: Other: Patient is wearing glasses, he is sitting in the wheelchair comfortable General: cooperative, healthy appearing, comfortable, no acute distress and well developed Orientation/consciousness: patient oriented x3 Limitations: no limitations HENMT: Head: Yes normal to inspection, Yes normocephalic and Yes atraumatic Mouth: oropharynx normal and moist mucous membranes Eyes: General: appearance normal, both eyes and all related structures Sclerae: sclerae normal EOM: EOMs intact bilaterally Neck: Neck: Yes normal visual inspection, Yes full ROM and Yes no lymphadenopathy Thyroid: Thyroid normal Chest: Chest palpation & inspection: normal inspection of the chest Resp: Effort & Inspection: normal respiratory effort and able to speak in complete sentences Auscultation: clear to auscultation bilaterally, no crackles, no rales, no rhonchi and no wheezes Cardio: Rate: regular rate Heart sounds: S1 normal heart sound present and S2 normal heart sound present GI: Other: There is a left groin hernia that is unable to be reduced given the patient's discomfort with even light touch of the overlying skin. There is no erythema of the overlying skin or of visual abnormalities of the skin. The penis and scrotum are otherwise within normal limits. There are no hernias on the abdomen. Inspection: Yes obesity Palpation (GI): Soft to palpation, nontender, no guarding and Hernia present Rectal Exam - Male: Yes deferred Skin: General skin exam: no rashes or lesions noted and no jaundice Wounds: no wounds Hair: normal Nails: normal Neuro: General: patient oriented x3 Cranial nerves: Yes CN's II-XII intact bilaterally Cognition (Neuro): normal cognition Gait exam (Neuro): Normal gait present Extrem: General: Yes normal to inspection, Yes full ROM, Yes no clubbing, cyanosis or edema and Yes no calf tenderness Psych: Appearance: grossly normal Mental Status: mental status grossly normal Speech and movement: Normal speech and movement present Affect: normal affect Attitude: cooperative Thought process: Normal thought process present Thought content: Normal thought content present Insight: Good insight present (Psych) Judgement: Good judgement present (Psych) Results Results Labs: Short CBC 12/03/20 Range/Units 23:28 WBC 9.0 (4.8-10.8) X10*3/uL Hgb 14.0 (14.0-18.0) g/dl Hct 41.2 L (42-52) % Plt Count 251 (160-400) X10*3/uL BMP 12/03/20 23:28 Sodium 138 Potassium 4.0 Chloride 107 Carbon Dioxide 23 BUN 13 Creatinine 0.94 Calcium 8.9 Liver Function 12/03/20 Range/Units 23:28 Total Bilirubin 1.1 H (0.0-1.0) mg/dL AST 19 (5-37) U/L ALT 34 (0-40) U/L Alkaline Phosphatase 112 (39-117) U/L Albumin 4.0 (3.5-5.0) g/dL Urine 12/04/20 Range/Units 02:29 Urine Color DARK YELLOW Urine Appearance CLEAR Urine pH 6.5 (5.0-8.0) Ur Specific [place] 1.010 (1.005-1.025) Urine Protein NEG (NEG-TRACE) MG/DL Urine Glucose (UA) NEG (NEG) MG/DL Assessment and Plan (1) Inguinal hernia of left side without obstruction or gangrene: Status: Acute This is a 50-year-old gentleman who came in with worsening left groin pain over the course of [address] scan he was found to have mostly fat within the inguinal canal and a small edge of the sigmoid colon. Patient has significant discomfort with palpation of the region. Patient has a history of a stroke without any residual deficits with this makes him increase wrist during surgery. Patient is also obese which makes him on stable. Patient will be taken to the operating room for an open repair of a left inguinal hernia with mesh. Risks benefits and alternatives were discussed with the patient he agrees to proceed. Quality VTE Deep Vein Thrombosis/Pulmonary Embolism Present on Admission: No VTE Risk Level: Low
--- NOTE | 2020-12-04 11:08 | PM.OP ---
Brief Operative Note Date of Service: 12/04/20 Pre-op diagnosis: Incarcerated left inguinal hernia Post-op diagnosis: same (Indirect type) Procedure: Open repair and reduction of left inguinal hernia with mesh Implants: Ethicon Prolene dual mesh Surgeon: Marcela Iniguez MD Anesthesia: GETA Estimated blood loss (mL): 5 Pathology: none sent Condition: stable Disposition: PACU
--- NOTE | 2020-12-04 11:09 | P.OP_ITS ---
Operative Note Operative Note Date of Service: 12/04/20 Narrative: Patient was brought into the operating room, placed on operating room table in the supine position. Safety time-out was performed. General anesthesia was induced. Bilateral groins and lower abdomen as well as scrotum was shaved with electric clippers and then prepped and draped in the normal sterile fashion using ChloraPrep. The left groin was marked for the planned incision site. Local anesthetic of 1% lidocaine with epinephrine and 0.25% Marcaine plain was used to anesthetize the planned incision site. A 15. Scalpel used to make a 4 cm transverse surgical incision in the left groin. The subcutaneous tissues were dissected using the cautery down to the external oblique aponeurosis. Local anesthetic was instilled into the external oblique aponeurosis and a 15. Scalpel used to make a small incision in the external oblique aponeurosis in the direction of the fibers. A Metzenbaum scissors was used to extend the incision through the external inguinal ring. The cord and cord structures were dissected off the overlying external oblique aponeurosis. The cord and cord structures were encircled and a Lizy drain was placed around the cord and cord structures. The pubic tubercle was cleared off dista lly. A direct inguinal hernia sac could be seen within the cord and cord structures. The cremasteric fibers were divided and the hernia sac was isolated and cleared away from the cord and cord structures. The hernia sac was cleared proximally and then completely reduced into the preperitoneal space. The preperitoneal space was cleared using a finger. A suitable size mesh which was a size large mesh was used to repair the hernia. A dual mesh was used with the inferior portion placed into the preperitoneal space and the overlying portion of this mesh was placed as an onlay fashion on the external oblique aponeurosis. The underlying preperitoneal portion of the mesh was then sutured medially to the conjoined tendon using several interrupted #1 Prolene sutures. It was sutured laterally to the shelving edge of the inguinal ligament using several interrupted #1 Prolene sutures. It was sutured inferiorly to the pubic tubercle. The overlying mesh was then sutured in an onlay fashion to the conjoined tendon medially and the shelving edge of the inguinal ligament laterally. A slit was made in the overlying portion of the mesh and the tails of this overlying portion of the mesh were fashioned around the cord and cord structures to recreate the external inguinal ring. The tails of the mesh were then reapproximated around the cord and cord structures using a [id number] #1 Prolene suture. Local anesthetic was instilled into the fascia. The external oblique aponeurosis was reapproximated using a running 3-0 Vicryl suture. The Verona's fascia was then reapproximated in the soft tissues using a running 2 0 Vicryl suture. Overlying skin was closed with a 4-0 Monocryl subcuticular stitch. The subcutaneous tissues were anesthetized once again with the local anesthetic used at the beginning of the case. The skin was clean and dried. Dermabond was placed over the skin incision. All counts were correct at the end the case. The patient was awake and in stable condition prior to extubation and then transferred to the recovery room.
[2020-12-04] MEDS: fentaNYL citrate/PF 100 MCG/2 ML VIAL 25 MCG IVPUSH ×4 (11:10→11:25)
--- NOTE | 2020-12-04 11:11 | PM.DS ---
DS: Providers Provider Date of Service: 12/04/20 Date of admission: 12/04/20 01:51 Primary care physician: Roger Cannon. DS: Diagnosis Discharge Diagnosis (1) Inguinal hernia of left side without obstruction or gangrene: Status: Acute DS: Medications Discharge Medications Home Medications: Home Medications Medication Instructions Recorded Confirmed omeprazole 40 mg PO DAILY 12/04/20 12/04/20 Previous Rx's Medication Instructions Recorded amlodipine 5 mg tablet 5 mg PO DAILY 90 Days #90 tab 08/31/20 aspirin 81 mg tablet,delayed 81 mg PO DAILY 90 Days #90 tab 08/31/20 release atorvastatin 40 mg tablet 40 mg PO DAILY 90 Days #90 tab 08/31/20 lisinopril 20 mg tablet 20 mg PO DAILY 90 Days #90 tab 08/31/20 oxycodone 5 mg PO Q3H PRN #30 tab 12/04/20 DS: Summary Hospital Course Hospital Course: Patient was admitted through the emergency department with an incarcerated inguinal hernia with omental fat and a small edge of the sigmoid seen within the left inguinal hernia. Patient was taken to the operating room for a open repair of left inguinal hernia with reduction performed with mesh. Patient did well postoperatively. Patient was transferred back to the surgical floor was started on regular diet and was discharged home on the same day as the operation. Status at Discharge Cognitive/behavioral status at discharge: Baseline and normal Functional status at discharge: independent ambulation Overall status at discharge: patient is back to baseline Time Spent with Patient Time attestation: Total time spent providing and/or coordinating discharge services: Discharge coordination time: Less than 30 minutes Specific discharge activities: No lifting greater than 5 lb for the next 4 weeks Quality: VTE Deep Vein Thrombosis/Pulmonary Embolism Present on Admission: No Physical Exam Vital Signs: Vital Signs: Last Vital Signs Temp 98.2 F 12/04/20 11:00 Pulse 75 12/04/20 11:00 Resp 16 12/04/20 11:00 BP 146/79 H 12/04/20 11:00 Pulse Ox 95 12/04/20 11:00 Body Mass Index 32.8 DS: Data Data Completed and Pending Labs on day of discharge: Laboratory Results - last 24 hr 12/03/20 12/03/20 12/03/20 23:28 23:28 23:28 WBC 9.0 RBC 4.99 Hgb 14.0 Hct 41.2 L MCV 82.6 MCH 28.1 MCHC 34.0 RDW 12.9 Plt Count 251 MPV 9.9 Immature Gran % (Auto) 0.3 Neut % (Auto) 65.7 Lymph % (Auto) 17.8 L [place] % (Auto) 13.5 H Eos % (Auto) 2.1 Baso % (Auto) 0.6 Lymph # (Auto) 1.6 [place] # (Auto) 1.2 Eos # (Auto) 0.2 Baso # (Auto) 0.1 Abs Immat Gran (auto) 0.03 Absolute Neuts (auto) 5.9 Absolute Nucleated RBC 0.000 Nucleated RBC % (auto) 0.0 Hold Blue Top SEE NOTE Sodium 138 Potassium 4.0 Chloride 107 Carbon Dioxide 23 Anion Gap 12 BUN 13 Creatinine 0.94 Estim Creat Clear Calc 113.0 Estimated GFR > 60 Random Glucose 111 D Lactic Acid Calcium 8.9 Total Bilirubin 1.1 H AST 19 ALT 34 Alkaline Phosphatase 112 Total Protein 7.1 Albumin 4.0 Urine Color Urine Appearance Urine pH Ur Specific [place] Urine Protein Urine Glucose (UA) Urine Ketones Urine Blood Urine Nitrite Ur Leukocyte Esterase Urine RBC Urine WBC Ur Squamous Epith Cells Urine Bacteria Urine Mucus Coronavirus (PCR) Influenza Type A (PCR) Influenza Type B (PCR) RSV RNA Qual (PCR) Blood Type Antibody Screen Antibody Identification 12/04/20 12/04/20 12/04/20 00:45 02:29 02:29 WBC RBC Hgb Hct MCV MCH MCHC RDW Plt Count MPV Immature Gran % (Auto) Neut % (Auto) Lymph % (Auto) [place] % (Auto) Eos % (Auto) Baso % (Auto) Lymph # (Auto) [place] # (Auto) Eos # (Auto) Baso # (Auto) Abs Immat Gran (auto) Absolute Neuts (auto) Absolute Nucleated RBC Nucleated RBC % (auto) Hold Blue Top Sodium Potassium Chloride Carbon Dioxide Anion Gap BUN Creatinine Estim Creat Clear Calc Estimated GFR Random Glucose Lactic Acid 0.9 Calcium Total Bilirubin AST ALT Alkaline Phosphatase Total Protein Albumin Urine Color DARK YELLOW Urine Appearance CLEAR Urine pH 6.5 Ur Specific [place] 1.010 Urine Protein NEG Urine Glucose (UA) NEG Urine Ketones NEG Urine Blood 1+ H Urine Nitrite NEG Ur Leukocyte Esterase NEG Urine RBC 15-29 H Urine WBC 0-2 Ur Squamous Epith Cells TRACE Urine Bacteria NONE Urine Mucus TRACE Coronavirus (PCR) Influenza Type A (PCR) Influenza Type B (PCR) RSV RNA Qual (PCR) Blood Type A Positive Antibody Screen POSITIVE Antibody Identification Cold Anti-M 12/04/20 02:34 WBC RBC Hgb Hct MCV MCH MCHC RDW Plt Count MPV Immature Gran % (Auto) Neut % (Auto) Lymph % (Auto) [place] % (Auto) Eos % (Auto) Baso % (Auto) Lymph # (Auto) [place] # (Auto) Eos # (Auto) Baso # (Auto) Abs Immat Gran (auto) Absolute Neuts (auto) Absolute Nucleated RBC Nucleated RBC % (auto) Hold Blue Top Sodium Potassium Chloride Carbon Dioxide Anion Gap BUN Creatinine Estim Creat Clear Calc Estimated GFR Random Glucose Lactic Acid Calcium Total Bilirubin AST ALT Alkaline Phosphatase Total Protein Albumin Urine Color Urine Appearance Urine pH Ur Specific [place] Urine Protein Urine Glucose (UA) Urine Ketones Urine Blood Urine Nitrite Ur Leukocyte Esterase Urine RBC Urine WBC Ur Squamous Epith Cells Urine Bacteria Urine Mucus Coronavirus (PCR) NEGATIVE Influenza Type A (PCR) NEGATIVE Influenza Type B (PCR) NEGATIVE RSV RNA Qual (PCR) NEGATIVE Blood Type Antibody Screen Antibody Identification Discharge Plan Discharge Patient Disposition: Home, Self-Care Referrals: Roger Cannon MD [Primary Care Provider] - Discharge Medications: New oxycodone 5 mg Tablet 5 mg PO Q3H PRN (Reason: Pain, Moderate (Pain Scale 4-6) Qty: 30 RF: 0 docusate sodium [Colace] 100 mg capsule 100 mg PO BID Qty: 30 RF: 1 acetaminophen 500 mg tablet 1,000 mg PO Q6H Qty: 60 RF: 1 Continued amlodipine 5 mg tablet 5 mg PO DAILY 90 Days Qty: 90 RF: 3 aspirin 81 mg tablet,delayed release (DR/EC) 81 mg PO DAILY 90 Days Qty: 90 RF: 3 atorvastatin 40 mg tablet 40 mg PO DAILY 90 Days Qty: 90 RF: 3 lisinopril 20 mg tablet 20 mg PO DAILY 90 Days Qty: 90 RF: 3 No Action omeprazole 20 mg capsule,delayed release(DR/EC) 40 mg PO DAILY RF: 0 Discharge Orders: Discharge Order (Routine); Ordered 12/04/20 Ordered By: Marcela Iniguez Activity on Discharge: No heavy lifting Stand Alone Forms: Patient Portal Discharge page Activity Restrictions/Additional Instructions: Patient should avoid all heavy lifting greater than 5 lb for the next 4 weeks. He may shower but should avoid all hot tubs, baths, swimming pools. Patient should follow up with Dr. Iniguez in 2 weeks time frame in her office. He should call [phone] schedule his follow-up appointment. Patient should also call the office with any questions or concerns such as increasing abdominal pain, persistent nausea vomiting, fever, chills, shortness of breath, chest pain, leg pain or swelling of the legs. Visit Report Forms: Patient Portal Discharge page Care Plan Goals: Return to baseline care Health Concerns: Left inguinal hernia Plan of Treatment: Left inguinal hernia repair during hospitalization
[2020-12-04] MEDS: oxyCODONE HCl Immed Release 5 MG TABLET 10 MG PO (11:20)
[2020-12-04] MEDS: Omeprazole 20 MG CAPSULE.DR 40 MG PO (13:02)
[2020-12-04] MEDS: amLODIPine Besylate 5 MG TABLET PO (13:03)
[2020-12-04] MEDS: Atorvastatin Calcium 40 MG TABLET PO (13:03)
--- NOTE | 2020-12-04 13:19 | MHC.CM.PN ---
PATIENT IS DISCHARGED HOME WITH NO NEED FOR SERVICES. HIS TRUCK IS IN [facility]. RN AWARE OF PLAN.
[2020-12-04] MEDS: ondansetron HCL 4 MG/2 ML VIAL IVPUSH (13:27)
== END 2020-12-04 18:05 | disposition home or self-care (01) | DRG 228 ==
LOC: HO.ED 12-04 01:48 → HO.S3 12-04 04:36
PROVIDERS: Student in an Organized Health Care Education/Training Program; Admitting Provider Surgery; Emergency Provider Emergency Medicine; PCP Family Medicine; Visit Provider Surgery
PROC: 0YU60JZ Supplement Left Inguinal Region with Synthetic Substitute, Open Approach (ICD-10-PCS; principal; 2020-12-04 08:15)
DX: K40.90 Unilateral inguinal hernia, without obstruction or gangrene, not specified as recurrent (principal); F41.9 Anxiety disorder, unspecified; Z86.73 Personal history of transient ischemic attack (TIA), and cerebral infarction without residual deficits; Z79.82 Long term (current) use of aspirin; Z79.899 Other long term (current) drug therapy
CPT/HCPCS: 0241U; 36415; 74177; 80053; 81001; 83605; 85025; 86850; 86870; 86885; 86900; 86901; 86920; 86921; 96374; 99285; C1781; J0690; J1100; J1885; J2250; J2270; J2405; J3010; Q9967

== ENCOUNTER 2020-12-05 09:14 | Emergency (ER) | payer OTHER, SELFPAY ==
--- NOTE | ~2020-12-05 | CT_ITS ---
EXAMINATION: CT ABDOMEN AND PELVIS WITH CONTRAST CLINICAL INFORMATION: Postop day 1 status post inguinal hernia repair COMPARISON: Previous day TECHNIQUE: Multidetector volumetric images were obtained from the superior aspect of the liver through the pubic symphysis following administration 85 mL of Omnipaque 350 intravenous contrast. Sagittal and coronal reformatted images were obtained on the technologist's workstation. Oral contrast: No This CT examination was performed using dose optimization techniques as appropriate, variously including the following: *Automated exposure control *Adjustment of mA and/or kV according to patient size (this includes techniques or standardized protocols for targeted exams where dose is matched to indication/reason for exam; i.e. extremities or head) *Use of iterative reconstruction technique DLP: 1243 mGy-cm FINDINGS: LUNG BASES: The visualized lung bases are unremarkable. LIVER, GALLBLADDER, AND BILIARY TREE: The liver is normal in size, shape, and attenuation. No focal hepatic lesion or biliary ductal dilatation is present. Cholelithiasis. PANCREAS: Unremarkable. SPLEEN: Unremarkable. ADRENAL GLANDS: Unremarkable. KIDNEYS AND URETERS: The kidneys are normal in size, shape, and attenuation. Stable nonobstructive 3 mm calculus, lower pole right kidney. Simple bilateral renal cysts present within the right. No suspicious renal cysts or masses. No hydronephrosis, hydroureter or perinephric stranding. BLADDER: Unremarkable. GASTROINTESTINAL TRACT: Sigmoid colonic diverticulosis. No evidence of diverticulitis. Stomach and small bowel unremarkable. ABDOMINAL WALL: Status post left inguinal hernia repair. There is fat stranding and soft tissue gas in the left inguinal region. The previously seen herniated omental fat has been reduced into the peritoneal cavity where there is persistent fat stranding. Small fluid present within the distal LEFT spermatic cord extending into the scrotum where there are bilateral hydroceles, larger on the left. Subcutaneous emphysema tracks along the penis. LYMPH NODES: Normal. VASCULAR: Unremarkable. PELVIC VISCERA: Mild prostatomegaly. Seminal vesicles unremarkable. OSSEOUS STRUCTURES: No acute or suspicious osseous abnormalities. CT/CT abdomen pelvis w con IMPRESSION: * Status post left inguinal herniorrhaphy with reduction of the previously seen herniated fat into the peritoneal cavity. There is stranding about the fat within left lower quadrant which could represent an evolving omental infarct. Sigmoid colon which is previously partially herniated shows no inflammation. * There is small intraperitoneal gas within the left lower quadrant and extending along the left inguinal canal as well as along the penis and within the left inguinal subcutaneous tissues. This is within normal limits in the early postoperative period. * Bilateral hydroceles. * Sigmoid colonic diverticulosis without evidence of diverticulitis. * Cholelithiasis.
--- NOTE | ~2020-12-05 | US_ITS ---
EXAMINATION: US SCROTUM CLINICAL INFORMATION: Scrotal pain and swelling. COMPARISON: Ultrasounds of December 03, [address] scan of December 04, 2020. TECHNIQUE: A sonogram of the scrotum was performed assessing roach-scale appearance and color Doppler flow. Spectral Doppler analysis of the arterial and venous flow were performed in the testes bilaterally. FINDINGS: Study is limited due to patient being extremely tender. There is diffuse scrotal wall thickening which appears more prominent than on prior study of December 03, 2020. It was difficult to visualize Doppler by color flow within the testes however arterial and venous waveforms were obtained bilaterally. There is a hypoechoic area superior to the left testicle which may be related to fat within the inguinal canal I do not see Doppler evidence of a pseudoaneurysm about the scrotum. Less likely echogenic region could be related to blood products. RIGHT: Right testicle measures 3.7 x 2.4 x 2.3 cm, volume 12.6 mL. No focal testicular parenchymal lesions are visualized. Spectral Doppler analysis of the arterial and venous flow is present in the right testis. Right epididymal head is normal. The body and tail are not imaged. There is a small right hydrocele present. Right epididymal Doppler flow is normal.. LEFT: Left testicle measures 3.6 x 3.0 x 2.5 cm, volume 14.5 mL. No focal testicular parenchymal lesions are visualized. Spectral Doppler analysis of the arterial and venous flow is present in the left testis. Left epididymal head is normal in size. There is a small hydrocele present. Left epididymal Doppler flow is increased. Which may be related to mild epididymitis. US/US scrotum doppler IMPRESSION: Increasing scrotal wall thickening. Echogenic material superior to the left testicle in region of the inguinal canal which may represent fat or less likely possible blood products. Small bilateral hydroceles.
[2020-12-05 09:38] VITALS: BP 156/77; RESP 18; TEMP 37.2; O2SAT 97; BMI 32.5
--- NOTE | 2020-12-05 09:57 | ED_ITS ---
HPI - Male Genitourinary General Chief complaint: Urogenital-Male Stated complaint: POST SURGERY Time Seen by Provider: 12/05/20 09:36 Source: patient Mode of arrival: ambulatory Limitations: no limitations History of Present Illness HPI Narrative: 50 y/o male presenting POD #1 after incarcerated inguinal hernia repair done here yesterday. He states upon discharge last night he noted some swelling and pain at the base of his penis. He had a coughing episode last night and had abdominal pain and inguinal pain so severe he was brought to his knees. He was able to get some sleep last night. This morning he woke up with significant increase in swelling of his penis and diffuse bruising from his left lower abdomen to his penis. He is able to urinate but has not had a bowel movement yet. He is not nauseated and he has not vomited. He denies fevers at home. No blood in his urine. MD Complaint: genital injury and other (painful and swollen penis post- operatively with abdominal pain) Onset (ago): day(s) (1) Duration: constant and progressively worsening Location: penis, left inguinal region and abdomen Radiation: penis Severity: severe Severity scale (1-10): 10 Quality: aching, sharp and stabbing Relieving factors: none Exacerbating factors: palpation and movement Context: recent surgery Associated symptoms: Reports denies other symptoms Related Data Sexually active: No Home Medications Medication Instructions Recorded Confirmed omeprazole 40 mg PO DAILY 12/04/20 12/05/20 Previous Rx's Medication Instructions Recorded amlodipine 5 mg tablet 5 mg PO DAILY 90 Days #90 tab 08/31/20 aspirin 81 mg tablet,delayed 81 mg PO DAILY 90 Days #90 tab 08/31/20 release atorvastatin 40 mg tablet 40 mg PO DAILY 90 Days #90 tab 08/31/20 lisinopril 20 mg tablet 20 mg PO DAILY 90 Days #90 tab 08/31/20 acetaminophen 1,000 mg PO Q6H #60 tab 12/04/20 docusate sodium [Colace] 100 mg PO BID #30 cap 12/04/20 oxycodone 5 mg PO Q3H PRN #30 tab 12/04/20 Allergies Allergy/AdvReac Type Severity Reaction Status Date / Time No Known Allergies Allergy Verified 12/04/20 09:26 Review of Systems Review of Systems: Constitutional: No Fever, No Chills Cardiovascular: No Chest Pain, No SOB, No Orthopnea, No Edema Respiratory: No Cough, No Sputum, No Wheezing, No dyspnea Gastrointestinal: No Nausea, No Vomiting, No Diarrhea, + abdominal Pain, No Hematochezia, No Melena Genitourinary: No Dysuria, No Urinary Frequency, No Hematuria, +penile swelling, +testicular pain Musculoskeletal: No joint pain, No Myalgias Skin: No Skin Lesions, No rash Neuro: No Weakness, No Numbness, No Dizziness, No Headache Psych: No Anxiety/Panic, No Depression Heme/Lymph: No Bruising, No Lymphadenopathy Endocrine: No Polyuria, No Polydipsia [facility] Past Medical History Medical History Anxiety Chest pain due to psychological stress Essential hypertension H/O: CVA (cerebrovascular accident) Hyperlipidemia Insomnia Surgical History (Updated 12/04/20 @ 11:12 by Marcela Iniguez MD) History of left inguinal hernia repair Family History Family History (Updated 12/04/20 @ 09:25 by Marcela Iniguez MD) Mother No problems noted. Father No problems noted. Brother No problems noted. Brother No problems noted. Brother No problems noted. Sister No problems noted. Daughter No problems noted. Social History Social History (Updated 12/04/20 @ 09:25 by Marcela Iniguez MD) Household Members: Spouse Housing: Apartment Alcohol intake: never Smoking Status: Former smoker Use of substances other than those prescribed or required for medical reasons: No Advance Directives: No Advance Directives Information Provided: Yes service: No Current occupational status: employed Physical Exam Vital Signs: Vital Signs: Last Vital Signs Temp 99.0 F 12/05/20 09:38 Pulse 79 12/05/20 13:20 Resp 16 12/05/20 13:20 BP 131/73 12/05/20 13:20 Pulse Ox 97 12/05/20 13:20 Body Mass Index 32.5 Appearance: Alert. Oriented X3. Appears to be in significant pain Eyes: Pupils equal, round and reactive to light. ENT: Pharynx normal. Neck: Normal inspection. Neck supple. CVS: Normal heart rate and rhythm. Pulses normal. Respiratory: No respiratory distress. Breath sounds normal. Abdomen: Soft, LLQ tenderness to light palpation, suprapubic tenderness, 6cm fresh surgical scar in LLQ with diffuse ecchymosis of LLQ extending down to inguinal area and penile shaft. penis is uncircrumsized with significant edema, ecchymosis, unable to retract foreskin. extremely tender penile shaft and right testicle. no scrotal edema, ecchymosis or mass. Skin: Skin warm and dry. Normal skin color. Normal skin turgor. No rashes. Extremities: No lower extremity edema. Neuro: Oriented X 3. No motor deficit. No sensory deficit. Course Course Course Narrative: 50 y/o male POD #1 from incarcerated inguinal hernia with severe abdominal pain and penile pain and swelling. Extensive bruising along abdomen and penis. Concern for hematoma, active bleeding into inguinal canal and into penis. Exam is consistent with phimosis. Spoke with Dr. Lyles who is recommending evaluation with CT and testicular U/S - reassuring that he can void. Will get PVR as well. Dr. Iniguez contacted as well - she stated his surgery was quite extensive, involving ometal fat and sigmoid colon within the hernia. IV dilaudid ordered now for pain control. Will f/u with Urology & Surgery after imaging is performed. Reevaluation(s) Reevaluation #1: Pain improved after IV dilaudid. WBC 14.6, likely reactive from surgery. Not septic, no infection. CT scan showed expected post-operative changes which were discussed with Dr. Iniguez. She states this is a very common post-operative complication after his type of surgery. She recommends elevation and pain control and f/u in office in 2 weeks. Urology also contacted after imaging done and ok for d/c as long as he is urinating ok, which he is. PVR 75cc. Results and management were discussed with the patient. He is stable for discharge, instructed to return if he cannot urinate. Consultations Consultation #1: Urology - Dr. Lyles Consultation #2: General [facility] - Dr. Iniguez MDM - Male Genitourinary Lab Data Result diagrams: 12/05/20 09:57 12/05/20 09:57 Labs: Lab Results 12/05/20 12/05/20 12/05/20 Range/Units 09:57 09:57 09:57 WBC 14.6 H (4.8-10.8) X10*3/uL RBC 4.62 (4.60-5.80) X10*6/uL Hgb 12.7 L (14.0-18.0) g/dl Hct 38.0 L (42-52) % MCV 82.3 (80-98) fL MCH 27.5 (27.0-33.0) pg MCHC 33.4 (31.0-36.0) g/dl RDW 12.7 (11.0-16.0) % Plt Count 258 (160-400) X10*3/uL MPV 9.9 (9.4-12.4) fL Immature Gran % (Auto) 0.3 (0.0-0.4) % Neut % (Auto) 73.1 H (45-73) % Lymph % (Auto) 11.7 L (20-40) % Evangeline % (Auto) 14.4 H (2-11) % Eos % (Auto) 0.3 (0-4) % Baso % (Auto) 0.2 (0-2) % Lymph # (Auto) 1.7 (1.2-4.9) X10*3/uL Evangeline # (Auto) 2.1 H (0.1-1.2) X10*3/uL Eos # (Auto) 0.0 (0.0-0.4) X10*3/uL Baso # (Auto) 0.0 (0.0-0.2) X10*3/uL Abs Immat Gran (auto) 0.05 H (0.00-0.03) X10*3/uL Absolute Neuts (auto) 10.7 H (2.0-8.3) X10*3/uL Absolute Nucleated RBC 0.000 (0.0-0.012) X10*3/uL Nucleated RBC % (auto) 0.0 (0.0-0.2) /100WBC Smear Tech's Comments VERIFIED PT 14.5 H (10.8-13.0) SEC INR 1.2 H (0.9-1.1) APTT 30.0 (24.1-38.0) SEC Sodium 135 (135-145) mmol/L Potassium 3.6 (3.3-5.1) mmol/L Chloride 103 (96-108) mmol/L Carbon Dioxide 21 L (22-29) mmol/L Anion Gap 15 (12-20) BUN 18 H (9-16) mg/dL Creatinine 0.98 (0.5-1.4) mg/dL Estim Creat Clear Calc 109.2 Estimated GFR > 60 Random Glucose 100 (60-115) mg/dL Lactic Acid (0.5-2.0) mmol/L Calcium 9.0 (8.4-10.2) mg/dL Magnesium 1.9 (1.6-2.6) mg/dL Total Bilirubin 1.4 H (0.0-1.0) mg/dL Direct Bilirubin 0.6 H (0.0-0.5) mg/dL AST 28 D (5-37) U/L ALT 33 (0-40) U/L Alkaline Phosphatase 100 (39-117) U/L Total Protein 6.9 (6.5-8.0) g/dL Albumin 3.8 (3.5-5.0) g/dL Urine Color Urine Appearance Urine pH (5.0-8.0) Ur Specific Troy (1.005-1.025) Urine Protein (NEG-TRACE) MG/DL Urine Glucose (UA) (NEG) MG/DL Urine Ketones (NEG) MG/DL Urine Blood (NEG) Urine Nitrite (NEG) Ur Leukocyte Esterase (NEG) Urine RBC (0) /HPF Urine WBC (0-4) /HPF Ur Squamous Epith Cells /LPF Urine Bacteria /LPF Urine Mucus /LPF 12/05/20 12/05/20 Range/Units 09:57 12:03 WBC (4.8-10.8) X10*3/uL RBC (4.60-5.80) X10*6/uL Hgb (14.0-18.0) g/dl Hct (42-52) % MCV (80-98) fL MCH (27.0-33.0) pg MCHC (31.0-36.0) g/dl RDW (11.0-16.0) % Plt Count (160-400) X10*3/uL MPV (9.4-12.4) fL Immature Gran % (Auto) (0.0-0.4) % Neut % (Auto) (45-73) % Lymph % (Auto) (20-40) % Evangeline % (Auto) (2-11) % Eos % (Auto) (0-4) % Baso % (Auto) (0-2) % Lymph # (Auto) (1.2-4.9) X10*3/uL Evangeline # (Auto) (0.1-1.2) X10*3/uL Eos # (Auto) (0.0-0.4) X10*3/uL Baso # (Auto) (0.0-0.2) X10*3/uL Abs Immat Gran (auto) (0.00-0.03) X10*3/uL Absolute Neuts (auto) (2.0-8.3) X10*3/uL Absolute Nucleated RBC (0.0-0.012) X10*3/uL Nucleated RBC % (auto) (0.0-0.2) /100WBC Smear Tech's Comments PT (10.8-13.0) SEC INR (0.9-1.1) APTT (24.1-38.0) SEC Sodium (135-145) mmol/L Potassium (3.3-5.1) mmol/L Chloride (96-108) mmol/L Carbon Dioxide (22-29) mmol/L Anion Gap (12-20) BUN (9-16) mg/dL Creatinine (0.5-1.4) mg/dL Estim Creat Clear Calc Estimated GFR Random Glucose (60-115) mg/dL Lactic Acid 1.2 (0.5-2.0) mmol/L Calcium (8.4-10.2) mg/dL Magnesium (1.6-2.6) mg/dL Total Bilirubin (0.0-1.0) mg/dL Direct Bilirubin (0.0-0.5) mg/dL AST (5-37) U/L ALT (0-40) U/L Alkaline Phosphatase (39-117) U/L Total Protein (6.5-8.0) g/dL Albumin (3.5-5.0) g/dL Urine Color DARK YELLOW Urine Appearance CLEAR Urine pH 6.0 (5.0-8.0) Ur Specific Troy 1.020 (1.005-1.025) Urine Protein NEG (NEG-TRACE) MG/DL Urine Glucose (UA) NEG (NEG) MG/DL Urine Ketones NEG (NEG) MG/DL Urine Blood TRACE (NEG) Urine Nitrite NEG (NEG) Ur Leukocyte Esterase NEG (NEG) Urine RBC 0-2 (0) /HPF Urine WBC 5-9 H (0-4) /HPF Ur Squamous Epith Cells TRACE /LPF Urine Bacteria NONE /LPF Urine Mucus 2+ /LPF Discharge Plan Discharge Clinical Impression: Phimosis of penis, Post-operative pain, Penile swelling Patient Disposition: Home, Self-Care Instructions: Phimosis (ED), Pain Management After Surgery (DC) Additional Instructions: Your CT scan today showed expected findings after surgery, no worrisome abnormalities. Recommend elevation of your scrotum and penis with towels or pillows underneath to elevate. Recommend 1, 000 mg X-tra Strength Tylenol every 6 hours. Max dose if 4,000 mg per 24 hours. Continue to take the pain medications as prescribed by Dr. Iniguez. Follow up with her in 2 weeks. Recommend Miralax, Colace and Senna to help prevent constipation while you are taking narcotics. All are available over the counter. If you cannot urinate in your own or if your pain is more severe come back to the ER for further evaluation. Prescriptions: No Action omeprazole 20 mg capsule,delayed release(DR/EC) 40 mg PO DAILY RF: 0 oxycodone 5 mg Tablet 5 mg PO Q3H PRN (Reason: Pain, Moderate (Pain Scale 4-6) Qty: 30 RF: 0 acetaminophen 500 mg tablet 1,000 mg PO Q6H Qty: 60 RF: 1 docusate sodium [Colace] 100 mg capsule 100 mg PO BID Qty: 30 RF: 1 amlodipine 5 mg tablet 5 mg PO DAILY 90 Days Qty: 90 RF: 3 aspirin 81 mg tablet,delayed release (DR/EC) 81 mg PO DAILY 90 Days Qty: 90 RF: 3 atorvastatin 40 mg tablet 40 mg PO DAILY 90 Days Qty: 90 RF: 3 lisinopril 20 mg tablet 20 mg PO DAILY 90 Days Qty: 90 RF: 3
[2020-12-05 10:04] LABS: Basophils Percent Auto 0.2 % (0-2); Eosinophils Percent Auto 0.3 % (0-4); Hemoglobin 12.7 g/dl (14.0-18.0); Imm Gran Abs Auto 0.05 X10*3/uL (0.00-0.03); Imm Gran Pct Auto 0.3 % (0.0-0.4); Lymphocytes Absolute Auto 1.7 X10*3/uL (1.2-4.9); Lymphocytes Percent Auto 11.7 % (20-40); MANUAL DIFF FLAG SCAN; Mean Corpuscular HGB Conc 33.4 g/dl (31.0-36.0); Mean Corpuscular Hemoglobin 27.5 pg (27.0-33.0); Mean Corpuscular Volume 82.3 fL (80-98); Mean Platelet Volume 9.9 fL (9.4-12.4); Monocytes Absolute Auto 2.1 X10*3/uL (0.1-1.2); Monocytes Percent Auto 14.4 % (2-11); Neutrophils Absolute Auto 10.7 X10*3/uL (2.0-8.3); Neutrophils Percent Auto 73.1 % (45-73); Platelet Count 258 X10*3/uL (160-400); Red Blood Count 4.62 X10*6/uL (4.60-5.80); Red Cell Distribution Width 12.7 % (11.0-16.0); SCAN SMEAR FLAG 1; White Blood Count 14.6 X10*3/uL (4.8-10.8)
[2020-12-05] MEDS: HYDROmorphone HCl 1 MG/ML SYRINGE IVPUSH (10:07)
[2020-12-05 10:15] LABS: INTERNATIONAL NORM RATIO 1.2 (0.9-1.1); Prothrombin Time 14.5 SEC (10.8-13.0)
[2020-12-05 10:22] LABS: Lactic Acid 1.2 mmol/L (0.5-2.0)
[2020-12-05 10:24] LABS: SLIDE REVIEW VERIFIED
[2020-12-05 10:27] LABS: Alanine Aminotransferase 33 U/L (0-40); Albumin Level 3.8 g/dL (3.5-5.0); Alkaline Phosphatase 100 U/L (39-117); Anion Gap 15 (12-20); Aspartate Amino Transferase 28 U/L (5-37); Bilirubin Direct 0.6 mg/dL (0.0-0.5); Bilirubin Total 1.4 mg/dL (0.0-1.0); Blood Urea Nitrogen 18 mg/dL (9-16); Carbon Dioxide 21 mmol/L (22-29); Chloride 103 mmol/L (96-108); Creatinine Clr Calc Pharmacy 109.2; Estimated Glomerular Filt Rate > 60; Glucose Random 100 mg/dL (60-115); Magnesium 1.9 mg/dL (1.6-2.6); Potassium 3.6 mmol/L (3.3-5.1); Sodium 135 mmol/L (135-145); Total Protein 6.9 g/dL (6.5-8.0)
[2020-12-05] MEDS: 0.9 % Sodium Chloride 1,000 ML 999 ML IVCONT (10:32)
[2020-12-05 10:33] VITALS: BP 119/77; PULSE 84; RESP 16; O2SAT 96
[2020-12-05] MEDS: iohexoL 350 MG/ML 100 ML INFUS..BTL IV (11:45)
[2020-12-05 12:11] LABS: Glucose Urine UA NEG (NEG); Leukocyte Esterase Urine NEG (NEG); Nitrite Urine NEG (NEG); Urine Blood TRACE (NEG); Urine Ketones NEG (NEG); Urine Protein NEG (NEG-TRACE)
[2020-12-05 12:12] LABS: Appearance Urine CLEAR; Color Urine DARK YELLOW
[2020-12-05 12:20] LABS: Mucus Urine 2+ /LPF; RBC Urine 0-2 /HPF (0); Squamous Epithelial Cell Urine TRACE /LPF; UACC CULT YES
--- NOTE | 2020-12-05 12:27 | PC.NURSE ---
Voided 200ml of dark yellow urine, PVR 75ml off unit to U/S. offered pain meds prior to, pt declined at that time
[2020-12-05 13:20] VITALS: BP 131/73; PULSE 79; RESP 16; O2SAT 97
[2020-12-05] MEDS: polyethylene glycoL 3350 17 GM POWD.PACK PO (13:30)
== END 2020-12-05 15:31 | disposition home or self-care (01) ==
PROVIDERS: Physician Assistant; Emergency Provider Emergency Medicine Emergency Medical Services; PCP Family Medicine
DX: K40.30 Unilateral inguinal hernia, with obstruction, without gangrene, not specified as recurrent (principal); N23 Unspecified renal colic; N47.1 Phimosis; R22.2 Localized swelling, mass and lump, trunk; Z87.891 Personal history of nicotine dependence
CPT/HCPCS: 36415; 51798; 74177; 76870; 80048; 80076; 81001; 83605; 83735; 85025; 85610; 85730; 87040; 87086; 93975; 96361; 96374; 99284; J1170; Q9967

== ENCOUNTER → 2020-12-20 12:43 | Outpatient (BNVA) | payer OTHER, SELFPAY | PROVIDERS: PCP Family Medicine; Visit Provider Surgery | DX: Z98.890 Other specified postprocedural states (principal); Z87.19 Personal history of other diseases of the digestive system | CPT/HCPCS: 99212 ==

== ENCOUNTER → 2021-01-11 10:45 | Outpatient (BNVA) | payer OTHER, SELFPAY | PROVIDERS: PCP Family Medicine; Visit Provider Surgery | DX: Z98.890 Other specified postprocedural states (principal); Z87.19 Personal history of other diseases of the digestive system | CPT/HCPCS: 99212 ==

== ENCOUNTER 2021-02-24 10:50 | Emergency (ER) | payer OTHER, SELFPAY ==
[2021-02-24 11:17] VITALS: BP 142/82; PULSE 72; RESP 18; TEMP 36.7; O2SAT 98; BMI 32.8
--- NOTE | 2021-02-24 11:48 | ED_ITS ---
HPI - General Adult General Chief complaint: Skin/Abscess/Foreign Body Stated complaint: infection Time Seen by Provider: 02/24/21 11:46 Source: patient Limitations: no limitations History of Present Illness HPI narrative: Patient presents with a burning rash to the scalp extending down around the right eye. Patient was recently seen by his PCP started on Bactrim at that time. Patient states he feels like his eyes itchy and watery and has some burning sensations in it. No nausea vomiting at this time chest pain shortness of breath. Symptoms are moderate. Patient denies any past history of shingles. No other complaints at this time. Related Data Home Medications Medication Instructions Recorded Confirmed omeprazole 40 mg PO DAILY 12/04/20 01/11/21 acetaminophen 500 mg tablet 1,000 mg PO Q6H PRN tab 12/20/20 01/11/21 Previous Rx's Medication Instructions Recorded amlodipine 5 mg tablet 5 mg PO DAILY 90 Days #90 tab 08/31/20 aspirin 81 mg tablet,delayed 81 mg PO DAILY 90 Days #90 tab 08/31/20 release atorvastatin 40 mg tablet 40 mg PO DAILY 90 Days #90 tab 08/31/20 lisinopril 20 mg tablet 20 mg PO DAILY 90 Days #90 tab 08/31/20 docusate sodium [Colace] 100 mg PO BID #30 cap 12/04/20 terbinafine HCl 250 mg tablet 250 mg PO DAILY #30 tab 02/10/21 sulfamethoxazole 800 1 tab PO Q12H 10 Days #20 tab 02/16/21 mg-trimethoprim 160 mg tablet acyclovir 800 mg PO Q4H 10 Days #120 tab MDD 02/24/21 5 times a day lorazepam [Ativan] 0.5 mg PO BID PRN #10 tab 02/24/21 Allergies Allergy/AdvReac Type Severity Reaction Status Date / Time No Known Allergies Allergy Verified 02/16/21 08:15 Review of Systems Review of Systems: Constitutional : No Weight loss, No Fever, No Chills, ENT/Mouth : No Hearing loss, No Ear Pain, No Nasal Congestion, No Sinus Pain Eyes: Right eye burning rash above right eye Cardiovascular : No Chest Pain, No SOB, No Dyspnea Respiratory : No Cough, No Sputum, No Wheezing Gastrointestinal : No Nausea, No Vomiting Musculoskeletal : No joint pain, No Myalgias, No Joint SwellingSkin : No Skin Lesions, No rash Neuro : No Weakness, No Numbness, No Paresthesias, No Loss of Consciousness, No Dizziness, No Headache Psych : No Anxiety/Panic, No Depression, No SI/HI/AH/VH, No Social Issues, Heme/Lymph: No Bruising, No Bleeding,No Lymphadenopathy Endocrine : No Polyuria, No Polydipsia, No Temperature Intolerance [facility] Past Medical History Attestation statement: The following information was validated with the patient. Medical History Anxiety Chest pain due to psychological stress Essential hypertension H/O: CVA (cerebrovascular accident) Hyperlipidemia Insomnia Family History Family History Mother No problems noted. Father No problems noted. Brother No problems noted. Brother No problems noted. Brother No problems noted. Sister No problems noted. Daughter No problems noted. Social History Social History Household Members: Spouse Housing: Apartment Alcohol intake: never Smoking Status: Never smoker Advance Directives: Yes Advance Directives Information Provided: No Advance Directives on File: No service: No Current occupational status: employed Physical Exam Vital Signs: Vital Signs: Last Vital Signs Temp 98.0 F 02/24/21 11:17 Pulse 72 02/24/21 11:17 Resp 18 02/24/21 11:17 BP 142/82 H 02/24/21 11:17 Pulse Ox 98 02/24/21 11:17 Body Mass Index 32.8 vital signs have been reviewed as normal and appeared to be correct. Blood pressure normal. Heart rate normal. Respiration rate normal. Temperature normal. Oxygen saturation normal. Appearance: Alert. Oriented X3. No acute distress. Head: Atraumatic rash noted on the right aspect of the scalp blister an erythematous zoster in appearance Eyes: PERRLA. EOMI. Conjunctiva and sclera normal. ENT: Pharynx normal. Uvula midline. Moist mucous membranes. Neck: Soft full range of motion, no JVD CVS: Heart regular rate and rhythm no murmurs and rubs Respiratory: Breath sounds are clear to auscultation bilaterally. No accessory muscle use noted. Back: No CVA tenderness. Full range of motion noted. Skin: Skin warm and dry. Normal skin color. Normal skin turgor. No rashes/lesions/lacerations noted. Extremities: No lower extremity edema. Extremities exhibit normal range of motion. Extremities nontender. Neuro: Oriented X 3. No motor deficit. No sensory deficit. Reflexes normal. Course Course Course Narrative: Rash is consistent with herpes zoster ophthalmicus on the right side Fluorescein stain right eye. Will start on antiviral at this time. Follow up with Ophthalmology will be recommended will not start on oral steroids as it is the rash has been 12:01 p.m. Right eye numbed with tetracaine tolerated well. Fluorescein stain done no uptake was visualized. Plan to start patient on antivirals at this time follow- up Discharge Plan Discharge Clinical Impression: Herpes zoster, Herpes zoster ophthalmicus of right eye Patient Disposition: Home, Self-Care Instructions: Shingles (ED) Additional Instructions: Acyclovir as directed Symptoms will improve over the next 24-48 hours Prescriptions: New acyclovir 400 mg tablet 800 mg PO Q4H MDD 5 times a day 10 Days Qty: 120 RF: 0 lorazepam [Ativan] 0.5 mg tablet 0.5 mg PO BID PRN (Reason: anxiety) Qty: 10 RF: 0 No Action terbinafine HCl 250 mg tablet 250 mg PO DAILY Qty: 30 RF: 0 omeprazole 20 mg capsule,delayed release(DR/EC) 40 mg PO DAILY RF: 0 docusate sodium [Colace] 100 mg capsule 100 mg PO BID Qty: 30 RF: 1 amlodipine 5 mg tablet 5 mg PO DAILY 90 Days Qty: 90 RF: 3 aspirin 81 mg tablet,delayed release (DR/EC) 81 mg PO DAILY 90 Days Qty: 90 RF: 3 atorvastatin 40 mg tablet 40 mg PO DAILY 90 Days Qty: 90 RF: 3 lisinopril 20 mg tablet 20 mg PO DAILY 90 Days Qty: 90 RF: 3 sulfamethoxazole-trimethoprim [Bactrim DS] 800-160 mg tablet 1 tab PO Q12H 10 Days Qty: 20 RF: 0 acetaminophen 500 mg tablet 1,000 mg PO Q6H PRNRF: 0 Referrals: Leo Rubin [Physician] - 2 days Stand Alone Forms: Work/School Release Interventions: ED Discharge Assessment Last Done: 02/24/21 12:12 Discharge Date/Time: 02/24/21 12:12
[2021-02-24] MEDS: Tetracaine HCl/PF 0.5% Oph Sol 4 ML DROPS 3 DROP EYE-RIGHT (11:55)
[2021-02-24] MEDS: Fluorescein Sodium STRIP 1 STRIP EYE-RIGHT (11:55)
== END 2021-02-24 12:12 | disposition home or self-care (01) ==
PROVIDERS: Emergency Provider Emergency Medicine; PCP Family Medicine
DX: B02.9 Zoster without complications (principal); H57.11 Ocular pain, right eye; Z79.899 Other long term (current) drug therapy
CPT/HCPCS: 99283

== ENCOUNTER 2021-03-29 10:03 | Outpatient (REF) | payer OTHER, SELFPAY ==
--- NOTE | ~2021-03-29 | XR_ITS ---
EXAMINATION: XR CHEST CLINICAL INFORMATION: Chest pain COMPARISON: None TECHNIQUE: 2 views of the chest were obtained. FINDINGS: The cardiac silhouette does not appear enlarged. The thoracic aorta may be slightly tortuous. Hilar and mediastinal contours are otherwise unremarkable. The lungs are clear. There is no pleural effusion or pneumothorax. There are degenerative changes of the spine. XR/XR chest 2V IMPRESSION: No evidence for acute disease in the chest.
== END 2021-03-29 10:04 | disposition home or self-care (01) ==
LOC: HO.XRAY 10:03
PROVIDERS: PCP Family Medicine; Visit Provider Family Medicine
DX: R07.89 Other chest pain (principal)
CPT/HCPCS: 71046

== ENCOUNTER 2021-04-18 12:49 | Outpatient (REF) | payer OTHER, SELFPAY ==
[2021-04-18 15:11] LABS: Alanine Aminotransferase 37 U/L (0-40); Albumin Level 4.2 g/dL (3.5-5.0); Alkaline Phosphatase 92 U/L (39-117); Anion Gap 11 (12-20); Aspartate Amino Transferase 28 U/L (5-37); Bilirubin Total 1.1 mg/dL (0.0-1.0); Blood Urea Nitrogen 13 mg/dL (9-16); Calcium 9.4 mg/dL (8.4-10.2); Carbon Dioxide 25 mmol/L (22-29); Chloride 107 mmol/L (96-108); Estimated Glomerular Filt Rate > 60; Glucose Random 84 mg/dL (60-115); Potassium 4.2 mmol/L (3.3-5.1); Sodium 139 mmol/L (135-145); Total Protein 7.1 g/dL (6.5-8.0)
[2021-04-18 15:33] LABS: Free T4 (Free Thyroxine) 1.44 ng/dL (0.71-1.85); Thyroid Stimulating Hormone < 0.01 uIU/mL (0.32-4.0); Vitamin D 25-OH Total 22.9 ng/mL (>30)
[2021-04-19 10:27] LABS: Triiodothyronine T3 Total 191 ng/dL (76-181)
[2021-04-21 21:22] LABS: Thyroglobulin Antibodies <1 IU/mL (< or = 1); Thyroid Peroxidase Antibodies 22 IU/mL (<9)
[2021-04-22 16:06] LABS: Thyroid Stimulating Immunoglob <89 % baseline (<140)
[2021-04-24 12:51] LABS: Thyrotropin Receptor Antibody <1.00 IU/L (<=2.00)
== END 2021-04-18 12:50 | disposition home or self-care (01) ==
LOC: HO.LAB 12:49
PROVIDERS: Absent Provider Family Medicine; PCP Family Medicine; Visit Provider Internal Medicine
DX: E05.90 Thyrotoxicosis, unspecified without thyrotoxic crisis or storm (principal); E55.9 Vitamin D deficiency, unspecified
CPT/HCPCS: 36415; 80053; 82306; 83520; 84439; 84443; 84445; 84480; 86376; 86800; 99202

== ENCOUNTER 2021-05-18 10:31 | Outpatient (REF) | payer OTHER, SELFPAY ==
--- NOTE | ~2021-05-18 | US_ITS ---
EXAMINATION: US THYROID CLINICAL INFORMATION: Thyrotoxicosis COMPARISON: None TECHNIQUE: Linear transducer grayscale and color Doppler examination with attention to the region of the thyroid. FINDINGS: SIZE: Measurements of the thyroid lobes and nodules are given in sagittal, anteroposterior and transverse dimensions respectively. Right Thyroid Lobe: 5.4 x 2.2 x 1.7 cm, volume 10.6 mL. Parenchyma: The gland echotexture is heterogeneous. Thyroid vascularity is normal. Left Thyroid Lobe: 5.5 x 3.5 x 2.6 cm, volume 26.1 mL. Parenchyma: The gland echotexture is heterogeneous. Thyroid vascularity is normal. Isthmus: 0.6 cm in maximum AP dimension. There are multiple bilateral thyroid nodules. Estimated total number of nodules greater than or equal to 1 cm: 2. Mechanical Fitter nodules are described as follows: 1. Location: Right mid. Size: 0.6 x 0.5 x 0.7 cm, volume 0.1 mL. Nodule characteristics: Composition: Spongiform (0). Echogenicity: Anechoic (0). Shape: Not taller than wide (0). Margins: Smooth (0). Echogenic Foci: None (0). ACR TI-RADS total points: 0 ACR TI-RADS category: 1 2. Location: Right inferior. Size: 0.6 x 0.4 x 0.6 cm, volume 0.06 mL. Nodule characteristics: Composition: Cystic(0). ACR TI-RADS total points: 0 ACR TI-RADS category: 1 3. Location: Left mid. Size: 2.1 x 3.0 x 3.6 cm, volume 11.6 mL. Nodule characteristics: Composition: Solid/almost completely solid (2). Echogenicity: Anechoic (0). Shape: Taller than wide (3). Margins: Smooth (0). Echogenic Foci: None (0). ACR TI-RADS total points: 5 ACR TI-RADS category: 4 4. Location: Left mid. Size: 0.9 x 0.4 x 1.2 cm, volume 0.2 mL. Nodule characteristics: Composition: Solid/almost completely solid (2). Echogenicity: Hyperechoic (1). Shape: Not taller than wide (0). Margins: Smooth (0). Echogenic Foci: None (0). ACR TI-RADS total points: 3 ACR TI-RADS category: 3 5. Location: Left inferior. Size: 0.8 x 0.5 x 0.7 cm, volume 0.1 mL. Nodule characteristics: Composition: Spongiform (0). Echogenicity: Anechoic (0). Shape: Not taller than wide (0). Margins: Smooth (0). Echogenic Foci: None (0). ACR TI-RADS total points: 0 ACR TI-RADS category: 1 NODES: No lymphadenopathy is seen in the tissue surrounding the thyroid gland. US/US thyroid IMPRESSION: Enlarged heterogeneous thyroid gland with multiple bilateral nodules. Largest nodule in the mid left lobe meet TI RADS criteria for fine-needle aspiration. ACR TI-RADS RECOMMENDATION REFERENCE: Ultrasound-guided fine-needle aspiration, followup ultrasound, no further follow up. * TR1 (0 point) and TR 2 (2 points): No FNA or follow up * TR3 (3 points): FNA if more than or equal to 2.5 cm in maximum dimension, followup ultrasound in 1, 3 and 5 years if 1.5 to 2.4 cm in maximum dimension. * TR4 (4-6 points): FNA if more than or equal to 1.5 cm in maximum dimension, followup ultrasound in 1, 2, 3 and 5 years if 1 to 1.4 cm in maximum dimension. * TR5 (more than or equal to 7 points): FNA if more than or equal to 1 cm in maximum dimension, followup ultrasound every year for 5 years if 0.5 to 0.9 cm in maximum dimension. * TR3, TR4 or TR5 nodules that are below the size threshold for follow up receive no follow up.
== END 2021-05-18 10:32 | disposition home or self-care (01) ==
LOC: HO.US 10:31
PROVIDERS: Visit Provider Internal Medicine
DX: E05.90 Thyrotoxicosis, unspecified without thyrotoxic crisis or storm (principal)
CPT/HCPCS: 76536

== ENCOUNTER → 2021-06-08 09:52 | Outpatient (REF) | payer OTHER, SELFPAY ==
--- NOTE | ~2021-06-08 | NM_ITS ---
EXAMINATION: THYROID UPTAKE AND SCAN CLINICAL INFORMATION: Thyrotoxicosis, unspecified. COMPARISON: No previous radionuclide thyroid scan is available for comparison. Thyroid ultrasound dated 05/18/2021 is available for comparison. TECHNIQUE: Following the oral administration of 274 microcuries of I-123 sodium iodide, thyroid uptake was performed and expressed as a percentage of the administrated dose. Gamma scintillation camera images of the thyroid in the anterior and right and left anterior oblique views were obtained using a pinhole collimator following the administration of 10 mCi Tc-99m pertechnetate. FINDINGS: The uptake is 3.0% at 4 hours and 27.4% at 24 hours (Normal radioiodine uptake at 24 hours is 10% to 30%). The radioiodine uptake is normal. The radiopertechnetate thyroid scintigram shows the thyroid gland to be very heterogeneous. There is a prominent rounded focus of relatively increased activity present in the mid to inferior aspects of the left lobe and 2 small right-sided rounded foci of relatively increased activity compared to the remainder the right lobe and the upper pole of the left lobe, but which are much less intense than the dominant focus on the left. A single anterior radioiodine image obtained at the time of the 24-hour uptake is similar to the radio pertechnetate image, but does not delineate the detail within the gland as well. Comparison with the 05/18/2021 thyroid ultrasound shows the largest nodule on the ultrasound in the mid left lobe corresponds well to the most intense focus on this radionuclide scan and an additional subcentimeter nodules are present bilaterally. 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 The radioiodine uptake is near the upper limits of normal, but this is consistent with a toxic multinodular goiter.
== END ==
LOC: HO.NUCMED 09:52
PROVIDERS: PCP Internal Medicine; Visit Provider Internal Medicine
DX: E05.90 Thyrotoxicosis, unspecified without thyrotoxic crisis or storm (principal)
CPT/HCPCS: 78014; A9512; A9516

== ENCOUNTER 2021-06-14 08:13 | Outpatient (REF) | payer OTHER, SELFPAY ==
[2021-06-14 09:47] LABS: Alanine Aminotransferase 44 U/L (0-40); Albumin Level 4.2 g/dL (3.5-5.0); Alkaline Phosphatase 90 U/L (39-117); Anion Gap 14 (12-20); Aspartate Amino Transferase 30 U/L (5-37); Bilirubin Direct 0.3 mg/dL (0.0-0.5); Bilirubin Total 0.7 mg/dL (0.0-1.0); Blood Urea Nitrogen 17 mg/dL (9-16); Calcium 9.4 mg/dL (8.4-10.2); Carbon Dioxide 22 mmol/L (22-29); Chloride 108 mmol/L (96-108); Estimated Glomerular Filt Rate > 60; Glucose Random 87 mg/dL (60-115); Potassium 4.5 mmol/L (3.3-5.1); Sodium 139 mmol/L (135-145); Total Protein 7.1 g/dL (6.5-8.0)
[2021-06-14 10:00] LABS: Thyroid Stimulating Hormone < 0.01 uIU/mL (0.32-4.0)
[2021-06-14 10:01] LABS: Free T4 (Free Thyroxine) 1.56 ng/dL (0.71-1.85)
[2021-06-16 03:52] LABS: Triiodothyronine T3 Total 186 ng/dL (76-181)
== END 2021-06-14 08:14 | disposition home or self-care (01) ==
LOC: HO.LAB 08:13
PROVIDERS: PCP Family Medicine; Visit Provider Internal Medicine
DX: R79.89 Other specified abnormal findings of blood chemistry (principal); F41.9 Anxiety disorder, unspecified; E05.20 Thyrotoxicosis with toxic multinodular goiter without thyrotoxic crisis or storm
CPT/HCPCS: 36415; 80053; 82248; 84439; 84443; 84480

== ENCOUNTER 2021-06-28 08:14 | Outpatient (REF) | payer OTHER, SELFPAY ==
[2021-06-28 09:53] LABS: Alanine Aminotransferase 37 U/L (0-40); Albumin Level 4.2 g/dL (3.5-5.0); Alkaline Phosphatase 100 U/L (39-117); Anion Gap 11 (12-20); Aspartate Amino Transferase 24 U/L (5-37); Bilirubin Direct 0.3 mg/dL (0.0-0.5); Bilirubin Total 0.7 mg/dL (0.0-1.0); Blood Urea Nitrogen 17 mg/dL (9-16); Calcium 9.6 mg/dL (8.4-10.2); Carbon Dioxide 25 mmol/L (22-29); Chloride 106 mmol/L (96-108); Estimated Glomerular Filt Rate > 60; Glucose Random 95 mg/dL (60-115); Potassium 4.8 mmol/L (3.3-5.1); Sodium 137 mmol/L (135-145); Total Protein 7.2 g/dL (6.5-8.0)
[2021-06-28 10:04] LABS: Free T4 (Free Thyroxine) 1.57 ng/dL (0.71-1.85)
[2021-06-28 10:18] LABS: Thyroid Stimulating Hormone < 0.01 uIU/mL (0.32-4.0)
[2021-06-29 23:06] LABS: Triiodothyronine T3 Total 173 ng/dL (76-181)
== END 2021-06-28 08:15 | disposition home or self-care (01) ==
LOC: HO.LAB 08:14
PROVIDERS: Absent Provider Internal Medicine; PCP Family Medicine; Visit Provider Family Medicine
DX: B35.1 Tinea unguium (principal); E05.20 Thyrotoxicosis with toxic multinodular goiter without thyrotoxic crisis or storm
CPT/HCPCS: 36415; 80053; 82248; 84439; 84443; 84480

== ENCOUNTER → 2021-07-25 08:02 | Outpatient (BNVA) | payer OTHER, SELFPAY | PROVIDERS: PCP Family Medicine; Visit Provider Internal Medicine ==

== ENCOUNTER 2021-07-26 08:27 | Outpatient (REF) | payer OTHER, SELFPAY ==
[2021-07-26 09:31] LABS: Calcium 9.4 mg/dL (8.4-10.2); Phosphorus 2.7 mg/dL (2.7-4.5)
[2021-07-26 09:45] LABS: Free T4 (Free Thyroxine) 1.15 ng/dL (0.71-1.85); Thyroid Stimulating Hormone 0.02 uIU/mL (0.32-4.0); Vitamin D 25-OH Total 24.6 ng/mL (>30)
[2021-07-27 10:21] LABS: Calcium (PTHI) 9.4 mg/dL (8.6-10.3); PTHI 49 pg/mL (14-64)
[2021-07-28 03:06] LABS: Triiodothyronine T3 Total 129 ng/dL (76-181)
== END 2021-07-26 08:28 | disposition home or self-care (01) ==
LOC: HO.LAB 08:27
PROVIDERS: PCP Family Medicine; Visit Provider Internal Medicine
DX: E05.20 Thyrotoxicosis with toxic multinodular goiter without thyrotoxic crisis or storm (principal); E55.9 Vitamin D deficiency, unspecified
CPT/HCPCS: 36415; 82040; 82306; 82310; 83970; 84100; 84439; 84443; 84480

== ENCOUNTER 2021-08-10 07:54 | Outpatient (REF) | payer OTHER, SELFPAY ==
[2021-08-10 09:29] LABS: Alanine Aminotransferase 28 U/L (0-40); Albumin Level 4.3 g/dL (3.5-5.0); Alkaline Phosphatase 87 U/L (39-117); Anion Gap 13 (12-20); Aspartate Amino Transferase 29 U/L (5-37); Bilirubin Direct 0.7 mg/dL (0.0-0.5); Bilirubin Total 1.9 mg/dL (0.0-1.0); Blood Urea Nitrogen 12 mg/dL (9-16); Calcium 9.6 mg/dL (8.4-10.2); Carbon Dioxide 22 mmol/L (22-29); Chloride 106 mmol/L (96-108); Estimated Glomerular Filt Rate > 60; Glucose Random 100 mg/dL (60-115); Potassium 4.2 mmol/L (3.3-5.1); Sodium 137 mmol/L (135-145); Total Protein 7.2 g/dL (6.5-8.0)
[2021-08-10 09:50] LABS: Free T4 (Free Thyroxine) 0.98 ng/dL (0.71-1.85)
[2021-08-12 02:12] LABS: Triiodothyronine T3 Total 128 ng/dL (76-181)
== END 2021-08-10 07:55 | disposition home or self-care (01) ==
LOC: HO.LAB 07:54
PROVIDERS: PCP Family Medicine; Visit Provider Internal Medicine
DX: R74.01 Elevation of levels of liver transaminase levels (principal); R79.89 Other specified abnormal findings of blood chemistry; B35.1 Tinea unguium
CPT/HCPCS: 36415; 80053; 82248; 84439; 84480

== ENCOUNTER 2021-08-12 08:01 | Outpatient (REF) | payer OTHER, SELFPAY ==
[2021-08-12 08:45] LABS: Alanine Aminotransferase 34 U/L (0-40); Albumin Level 4.4 g/dL (3.5-5.0); Alkaline Phosphatase 90 U/L (39-117); Aspartate Amino Transferase 38 U/L (5-37); Bilirubin Direct 0.6 mg/dL (0.0-0.5); Bilirubin Total 1.4 mg/dL (0.0-1.0); Total Protein 7.3 g/dL (6.5-8.0)
[2021-08-12 09:42] LABS: Free T4 (Free Thyroxine) 1.05 ng/dL (0.71-1.85); Thyroid Stimulating Hormone < 0.01 uIU/mL (0.32-4.0)
[2021-08-14 19:37] LABS: Triiodothyronine T3 Total 140 ng/dL (76-181)
== END 2021-08-12 08:02 | disposition home or self-care (01) ==
LOC: HO.LAB 08:01
PROVIDERS: PCP Family Medicine; Visit Provider Internal Medicine
DX: E05.90 Thyrotoxicosis, unspecified without thyrotoxic crisis or storm (principal)
CPT/HCPCS: 36415; 80076; 84439; 84443; 84480

== ENCOUNTER 2021-08-16 09:03 | Outpatient (REF) | payer OTHER, SELFPAY ==
[2021-08-16 10:41] LABS: Alanine Aminotransferase 33 U/L (0-40); Albumin Level 4.1 g/dL (3.5-5.0); Alkaline Phosphatase 83 U/L (39-117); Aspartate Amino Transferase 27 U/L (5-37); Bilirubin Direct 0.3 mg/dL (0.0-0.5); Bilirubin Total 0.6 mg/dL (0.0-1.0); Total Protein 6.7 g/dL (6.5-8.0)
== END 2021-08-16 09:04 | disposition home or self-care (01) ==
LOC: HO.LAB 09:03
PROVIDERS: PCP Family Medicine; Visit Provider Internal Medicine
DX: R94.5 Abnormal results of liver function studies (principal)
CPT/HCPCS: 36415; 80076

== ENCOUNTER 2022-01-31 10:02 | Outpatient (REF) | payer OTHER, SELFPAY ==
[2022-01-31 12:20] LABS: Alanine Aminotransferase 30 U/L (0-40); Albumin Level 4.4 g/dL (3.5-5.0); Alkaline Phosphatase 77 U/L (39-117); Anion Gap 12 (12-20); Aspartate Amino Transferase 22 U/L (5-37); Bilirubin Total 1.5 mg/dL (0.0-1.0); Blood Urea Nitrogen 11 mg/dL (9-16); Calcium 9.7 mg/dL (8.4-10.2); Carbon Dioxide 25 mmol/L (22-29); Chloride 104 mmol/L (96-108); Estimated Glomerular Filt Rate > 60; Glucose Fasting 87 mg/dL (60-99); Potassium 4.3 mmol/L (3.3-5.1); Sodium 137 mmol/L (135-145); TSH reflex Free T4 0.19 uIU/mL (0.32-4.0); Total Protein 7.7 g/dL (6.5-8.0)
[2022-01-31 13:08] LABS: Free T4 (Free Thyroxine) 1.38 ng/dL (0.71-1.85)
== END 2022-01-31 10:03 | disposition home or self-care (01) ==
LOC: HO.WFDLDS 10:02
PROVIDERS: Visit Provider Family Medicine
DX: Z00.00 Encounter for general adult medical examination without abnormal findings (principal); Z12.5 Encounter for screening for malignant neoplasm of prostate; E05.90 Thyrotoxicosis, unspecified without thyrotoxic crisis or storm; E03.9 Hypothyroidism, unspecified
CPT/HCPCS: 36415; 80053; 84153; 84439; 84443

== ENCOUNTER 2022-08-07 07:24 | Outpatient (REF) | payer OTHER, SELFPAY ==
[2022-08-07 09:07] LABS: Free T4 (Free Thyroxine) 1.24 ng/dL (0.71-1.85); Thyroid Stimulating Hormone 0.09 uIU/mL (0.32-4.0)
== END 2022-08-07 07:25 | disposition home or self-care (01) ==
LOC: HO.LAB 07:24
PROVIDERS: PCP Family Medicine; Visit Provider Internal Medicine
DX: E89.0 Postprocedural hypothyroidism (principal)
CPT/HCPCS: 36415; 84439; 84443

== ENCOUNTER → 2023-01-08 09:03 | Outpatient (BNVA) | payer OTHER, SELFPAY | PROVIDERS: PCP Family Medicine; Visit Provider Internal Medicine | DX: C73 Malignant neoplasm of thyroid gland (principal); E89.0 Postprocedural hypothyroidism | CPT/HCPCS: 99212 ==

== ENCOUNTER 2023-01-08 10:11 | Outpatient (REF) | payer OTHER, SELFPAY ==
[2023-01-08 13:38] LABS: Appearance Urine Clear; Color Urine Yellow; Glucose Urine UA Negative (Negative); Leukocyte Esterase Urine Trace (Negative); Nitrite Urine Negative (Negative); UMIC TRIGGER UA YES; Urine Blood Negative (Negative); Urine Ketones Negative (Negative); Urine Protein Negative (Neg-Trace)
[2023-01-08 13:43] LABS: Bacteria Urine None Seen (None Seen); Hyaline Casts Urine 0-2 /LPF (0-2); RBC Urine 0-2 /HPF (0-2); Squamous Epithelial Cell Urine 0-2 /HPF (0-2)
[2023-01-08 13:54] LABS: Microalbum/Creatinine Ratio Ur 8.5 ug/mg cr
[2023-01-08 13:57] LABS: Potassium 4.5 mmol/L (3.3-5.1); Sodium 139 mmol/L (135-145)
[2023-01-08 13:58] LABS: Alanine Aminotransferase 30 U/L (0-40); Albumin Level 4.2 g/dL (3.5-5.0); Alkaline Phosphatase 84 U/L (39-117); Anion Gap 12 (12-20); Aspartate Amino Transferase 21 U/L (5-37); Bilirubin Total 0.9 mg/dL (0.0-1.0); Blood Urea Nitrogen 10 mg/dL (9-16); Calcium 9.4 mg/dL (8.4-10.2); Carbon Dioxide 28 mmol/L (22-29); Chloride 104 mmol/L (96-108); Cholesterol 120 mg/dL; Estimated Glomerular Filt Rate > 60; Glucose Fasting 108 mg/dL (60-99); HDL Cholesterol 43 mg/dL; LDL Cholesterol Calculated 62 mg/dl; Total Protein 7.2 g/dL (6.5-8.0); Triglycerides 76 mg/dL
[2023-01-08 14:15] LABS: Free T4 (Free Thyroxine) 1.06 ng/dL (0.71-1.85); Prostate Specific Antigen Scr 0.92 ng/mL (<0.05-4.0); Thyroid Stimulating Hormone 0.41 uIU/mL (0.32-4.0)
[2023-01-09 10:28] LABS: Triiodothyronine T3 Total 99 ng/dL (76-181)
[2023-01-11 06:28] LABS: Thyroglobulin Antibody <1 IU/mL (<=1); Thyroglobulin Level 0.3 ng/mL
== END 2023-01-08 10:12 | disposition home or self-care (01) ==
LOC: HO.10HDL 10:11
PROVIDERS: PCP Family Medicine; Visit Provider Internal Medicine
DX: Z00.00 Encounter for general adult medical examination without abnormal findings (principal); Z12.5 Encounter for screening for malignant neoplasm of prostate; C73 Malignant neoplasm of thyroid gland; I10 Essential (primary) hypertension; E03.9 Hypothyroidism, unspecified
CPT/HCPCS: 36415; 80053; 80061; 81001; 82043; 84153; 84432; 84439; 84443; 84480; 86800

== ENCOUNTER 2023-10-02 10:01 | Outpatient (AMB) | payer OTHER, SELFPAY ==
[2023-10-02 10:15] VITALS: BP 130/80; PULSE 66; O2SAT 97; BMI 38.0
--- NOTE | 2023-10-02 10:15 | MHC.PC.OV ---
Vital Signs 10/02/23 10:15 Height 5 ft 6 in Weight 235 lb 8 oz BMI 38.0 BP 130/80 Blood Pressure Location Lt brachial Position Sitting Pulse 66 Pulse Source Pulse Oximeter Pulse Oximetry (%) 97 Oxygen Delivery Method Room Air Intake Visit Reasons: follow up htn Intake Note: Patient is here to follow up on hypertension. Allergies No Known Allergies Allergy (Verified 10/02/23 10:18) Medication List - Last Reconciled 10/02/23 by Roger Cannon MD acetaminophen 1,000 mg PO Q6H PRN amlodipine 5 mg PO DAILY 90 days aspirin 81 mg PO DAILY atorvastatin 40 mg PO DAILY 90 days cholecalciferol (vitamin D3) (Vitamin D3) 50 mcg PO DAILY erythromycin 1 appl ophthalmic (eye) QID 7 days levothyroxine 125 mcg PO DAILY lisinopril 20 mg PO DAILY 90 days lorazepam (Ativan) 0.5 mg PO BID PRN omeprazole 40 mg (2 x 20 mg) PO DAILY 90 days Tobacco use date assessed: 10/02/23 Dental Screening Dental Screen Date: 10/02/23 Did you have a dental visit in the last 12 months?: No Did you have a dental problem in the last 6 months where you did not have access to dental care?: No Was dental information given to patient?: Patient has dentist HPI follow up htn HPI Details 53 y/o male presents to f/u hypertension. Blood pressure today 130/80. He is on lisinopril 20mg and amlodipine 5mg daily. 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 Father No problems noted. Social History Household Members: Spouse Housing: Apartment Do you presently have visiting nurse or other home services: No Alcohol intake: never Patient Tobacco Use Status: Former Tobacco user Tobacco use type: Cigarette e-Cigarette/Vaping Use: Never Used Second Hand Smoke Exposure: No service: No Current occupational status: employed Current occupational exposures/hazards: No Cognitive needs: No Hearing needs: No Vision needs: No Questionnaire PHQ-9 Over the last 2 weeks, how often have you been bothered by any of the following problems? 1. Little interest or pleasure in doing things: not at all 2. Feeling down, depressed, or hopeless: not at all 3. Trouble falling or staying asleep, or sleeping too much: not at all 4. Feeling tired or having little energy: not at all 5. Poor appetite or overeating: not at all 6. Feeling bad about yourself - or that you are a failure or have let yourself or your family down: not at all 7. Trouble concentrating on things, such as reading the newspaper or watching television: not at all 8. Moving or speaking so slowly that other people could have noticed. Or the opposite - being so fidgety or restless that you have been moving around a lot more than usual: not at all 9. Thoughts that you would be better off or of hurting yourself in some way: not at all Total score: 0 Source: Developed by Drs. Anders De Guzman, Brooke Laboy, Ephraim Bermudez and colleagues, with an educational maira from [employer]. Thrive Questionnaire Date Thrive assessed: 10/02/23 I am a: Patient What is your living situation today?: I have a steady place to live Within the past 12 months, did the food you bought not last and you didn't have the money to get more?: Sometimes True Within the past 12 months, did you worry whether your food would run out before you got money to buy more?: Sometimes True Do you have trouble paying for medicines?: No Do you have trouble getting transportation to medical appointments?: No Do you have trouble paying your heating and electricity bill?: No Do you have trouble taking care of your child, family member or friend?: No Do you have trouble with day-to-day activities such as bathing, preparing meals, shopping, managing finances, etc.?: No Are you currently unemployed and looking for a job?: No Are you interested in more education?: No AUDIT C Alcohol Use Questionnaire (AUDIT-C) 1. How often do you have a drink containing alcohol?: Never 3. How often do you have six or more drinks on one occasion?: Never Total Score: 0 JANET-7 AMB Questionnaire JANET-7 Date JANET - 7 assessed: 10/02/23 Feeling nervous, anxious, or on edge: 0 = Not at all Not being able to stop or control worryin = Not at all Worrying too much about different things: 0 = Not at all Trouble relaxin = Not at all Being so restless that it is hard to sit still: 0 = Not at all Becoming easily annoyed or irritable: 0 = Not at all Feeling afraid as if something awful might happen: 0 = Not at all Total JANET-7 score (0-4 normal; 5-9 mild; 10-14 moderate; 15-21 severe): 0 Source: Developed by Drs. Anders De Guzman, Brooke Laboy, Ephraim Bermudez and colleagues, with an educational maira from [employer]. Review of Systems Const Denies chills, Denies fatigue, Denies fever(s), Denies headache(s) and Denies weakness ENT Denies dizziness and Denies headache(s) Card Denies dyspnea Resp Denies cough, Denies dyspnea, Denies wheezing and Denies other (shortness of breath) Musc Denies numbness and Denies tingling Neuro Denies dizziness, Denies headache(s), Denies numbness, Denies tingling and Denies weakness Psych Denies anxiety and Denies depression Endo Denies fatigue Aller/Immun Denies wheezing Physical exam (Primary Care) Vital Signs: Last Vital Signs Pulse 66 10/02/23 10:15 BP 130/80 10/02/23 10:15 Pulse Ox 97 10/02/23 10:15 Oxygen Delivery Method Room Air 10/02/23 10:15 BMI result Body Mass Index 38.0 Tobacco/Smoking Status: Tobacco use Status Tobacco use date assessed 10/02/23 10/02/23 10:19 Patient Tobacco Use Status Former Tobacco user 10/02/23 10:19 Tobacco use type Cigarette 10/02/23 10:19 e-Cigarette/Vaping Use Never Used 10/02/23 10:19 PHQ-9: PHQ-9 Score PHQ-9: Total score 0 10/02/23 11:00 Thrive Assessment: Date of Thrive Assessment Date Thrive assessed 10/02/23 10/02/23 10:24 Const General: well developed; No acute distress Nutritional Appearance: well nourished Orientation/consciousness: patient oriented x3 HENMT Head: Yes normocephalic and Yes atraumatic Eyes General: appearance normal, both eyes and all related structures Pupils: Equal, round and reactive pupils present EOM: EOMs intact bilaterally Resp Effort & Inspection: normal respiratory effort Neuro General: patient oriented x3 and gait normal Cranial nerves: Yes Equal, round and reactive pupils present Psych Affect: normal affect Assessment and Plan Assessment & Plan (1) Essential hypertension: Code(s): I10 - Essential (primary) hypertension Plan: Blood?pressure?is?controlled.??Goal?is?less?than?140/90 Continue?current?medication (2) Fatigue: Code(s): R53.83 - Other fatigue Plan: Fatigue?and?daytime?sleepiness/hypersomnia Unclear?cause.??Possible?sleep?apnea. Possible?thyroid?cause. Will?check?sleep?study Follow-up?with?endocrinology?as?recommended (3) Hypersomnolence: Code(s): G47.10 - Hypersomnia, unspecified Plan: Referred?to?Sleep?Medicine Orders: Referrals Sleep Medicine Referral G47.10 - Hypersomnia, unspecified, R53.83 - Other fatigue Coding Level of Care Code Est Pt Level 4 (24470) Diagnoses Essential hypertension I10 Fatigue R53.83 Hypersomnolence G47.10
== END 2023-10-02 11:18 | disposition home or self-care (01) ==
PROVIDERS: PCP Family Medicine; Visit Provider Family Medicine
DX: I10 Essential (primary) hypertension (principal); R53.83 Other fatigue; G47.10 Hypersomnia, unspecified
CPT/HCPCS: 99214

== ENCOUNTER 2023-10-23 08:35 | Outpatient (AMB) | payer OTHER, SELFPAY ==
[2023-10-23 08:40] VITALS: BP 148/92; PULSE 76; BMI 39.0
--- NOTE | 2023-10-23 08:40 | A.OFFVIS_ITS ---
Intake Vital Signs 10/23/23 08:40 Height 5 ft 6 in Weight 241 lb 13.553 oz BMI 39.0 BP 148/92 H Blood Pressure Location Lt brachial Position Sitting Pulse 76 Pulse Source Pulse Oximeter Intake Visit Reasons: F/U Thyroid Cancer-confirmed Intake Note: Patient present today for Thyroid cancer follow up visit. Previously seen by Dr. Eli. 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 Patient last saw Dr. Eli on 01/08/2023 He was noted back in July of 2020 to have a completely suppressed TSH with a normal FT4. This was repeated in September 2020 with the same results. He was seen by his PCP in March 2021 for anxiety and chest pain. Labs revealed thyrotoxicosis with suppressed TSH and elevated TT3. All antibodies are negative except a mild elevation of TPO. Thyroid Uptake and Scan was consistent with a toxic multinodular thyroid with a dominant LMP 2.1 cm hot nodule. He was started on Methimazole 10 mg PO daily after his thyroid uptake and scan was complete He was also referred for a total thyroidectomy and had this completed 12/28/2021. Postoperatively he stopped the methimazole and instead was started on levothyroxine 150 mcg PO daily, which has since been decreased to levothyroxine 125 mcg PO daily. Official surgical path revealed microinvasive PTC, measuring <1mm within the RMP. There was also a focus of NIFTP. TSH is at goal on levothyroxine 125 mcg PO daily with undetectable TG levels. He reports feeling well today. He denies any lumps or bumps in the neck. He denies any family history of thyroid disease. 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 Father No problems noted. Social History Household Members: Spouse Housing: Apartment Do you presently have visiting nurse or other home services: No Alcohol intake: never Patient Tobacco Use Status: Former Tobacco user Tobacco use type: Cigarette e-Cigarette/Vaping Use: Never Used Second Hand Smoke Exposure: No service: No Current occupational status: employed Current occupational exposures/hazards: No Cognitive needs: No Hearing needs: No Vision needs: No Physical Exam Vital Signs: Last Vital Signs Pulse 76 10/23/23 08:40 BP 148/92 H 10/23/23 08:40 BMI result Body Mass Index 39.0 Const Other: Healed scar status post thyroidectomy Assessment & Plan Assessment & Plan (1) Thyroid cancer: Code(s): C73 - Malignant neoplasm of thyroid gland Plan This is a 53-year-old male with a history of total thyroidectomy Official surgical path revealed microinvasive PTC, measuring <1mm within the RMP. There was also a focus of NIFTP. He is currently on 125 mcg levothyroxine. He appears to be clinically and biochemically euthyroid. Will check TSH and free T4 and adjust levothyroxine if necessary . If TSH is normal, patient can follow up with his primary care provider and return back to endocrinology as needed. There is no need for any further imaging or follow-up for thyroid cancer as it was incidentally discovered micro papillary. TSH should be kept in normal range. Patient returned back to endocrinology as needed Orders: Orders Free T4 (Free Thyroxine) Today C73 - Malignant neoplasm of thyroid gland Thyroid Stimulating Hormone Today C73 - Malignant neoplasm of thyroid gland Coding Level of Care Code Est Pt Level 3 (90852) Diagnoses Thyroid cancer C73
== END 2023-10-23 09:16 | disposition home or self-care (01) ==
PROVIDERS: PCP Family Medicine; Visit Provider Internal Medicine Endocrinology, Diabetes & Metabolism
DX: C73 Malignant neoplasm of thyroid gland (principal)
CPT/HCPCS: 99213

== ENCOUNTER → 2023-10-23 08:35 | Outpatient (BNVA) | payer OTHER, SELFPAY | PROVIDERS: PCP Family Medicine; Visit Provider Internal Medicine Endocrinology, Diabetes & Metabolism | DX: C73 Malignant neoplasm of thyroid gland (principal); E89.0 Postprocedural hypothyroidism | CPT/HCPCS: 99212 ==

== ENCOUNTER 2023-10-23 09:18 | Outpatient (REF) | payer OTHER, SELFPAY ==
[2023-10-23 12:22] LABS: Free T4 (Free Thyroxine) 1.12 ng/dL (0.71-1.85); Thyroid Stimulating Hormone 0.68 uIU/mL (0.32-4.0)
== END 2023-10-23 09:19 | disposition home or self-care (01) ==
LOC: HO.10HDL 09:18
PROVIDERS: Visit Provider Internal Medicine Endocrinology, Diabetes & Metabolism
DX: C73 Malignant neoplasm of thyroid gland (principal)
CPT/HCPCS: 36415; 84439; 84443

== ENCOUNTER 2024-02-13 08:26 | Outpatient (AMB) | payer OTHER, SELFPAY ==
--- NOTE | 2024-02-13 08:32 | A.OFFPC_ITS ---
Vital Signs 02/13/24 08:33 Height 5 ft 6 in Weight 263 lb BMI 42.4 BP 126/84 Blood Pressure Location Rt brachial Position Sitting Respiration 13 Pulse 62 Pulse Source Pulse Oximeter Pulse Oximetry (%) 100 Oxygen Delivery Method Room Air Intake Visit Reasons: CPE with f/u labs and health maintenance Intake Note: Patient is here to review labs along with a physical. Patient reports he has L knee pain for the past several months to a year. Patient reports he is sleeping with a pillow to keep knees separate. Patient has difficulty bending his knee due to pain and swelling. Acute Care Registered Nurse Required: No Accompanied by: Self / Same As Patient Allergies No Known Allergies Allergy (Verified 02/13/24 08:47) Tobacco use date assessed: 02/13/24 Dental Screening Dental Screen Date: 02/13/24 Did you have a dental visit in the last 12 months?: No Did you have a dental problem in the last 6 months where you did not have access to dental care?: No Was dental information given to patient?: Patient declined HPI CPE with f/u labs and health maintenance HPI Details 53 y/o male presents for a CPE with f/u labs and health maintenance. No recent labs to review. Had elevated fasting glucose last year. Pt notes he is always thirsty. A1c today 02/13/24 is 6.5%. Followed by Dr. Leggett, endocrinology for thyroid cancer. He is post operative hypothyroid. Pt reports L knee pain and swelling. Pt notes last cologuard test was December 2021, which was positive. HPI Comments History of Present Illness Details Documentation assistance for Roger Cannon MD, was provided by Cliff Anderson, Actuarial Mathematician on 02/13/2024 9:41 AM MICHELLE. Atiya, Dr. Cannon, have read, observed, and verified documentation. 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 Father No problems noted. Social History Household Members: Spouse Housing: Apartment Do you presently have visiting nurse or other home services: No Alcohol intake: never Patient Tobacco Use Status: Former Tobacco user Tobacco use type: Cigarette e-Cigarette/Vaping Use: Never Used Second Hand Smoke Exposure: No service: No Current occupational status: employed Current occupation: [employer] Current occupational exposures/hazards: No Cognitive needs: No Hearing needs: No Vision needs: No Questionnaire PHQ-9 Over the last 2 weeks, how often have you been bothered by any of the following problems? 1. Little interest or pleasure in doing things: not at all 2. Feeling down, depressed, or hopeless: not at all 3. Trouble falling or staying asleep, or sleeping too much: not at all 4. Feeling tired or having little energy: not at all 5. Poor appetite or overeating: not at all 6. Feeling bad about yourself - or that you are a failure or have let yourself or your family down: not at all 7. Trouble concentrating on things, such as reading the newspaper or watching television: not at all 8. Moving or speaking so slowly that other people could have noticed. Or the opposite - being so fidgety or restless that you have been moving around a lot more than usual: not at all 9. Thoughts that you would be better off or of hurting yourself in some way: not at all Total score: 0 Depression Screening Interpretation: Negative Depression Screening Done: Yes 78071 - PHQ-9 Billing: Yes Source: Developed by Drs. Anders De Guzman, Brooke Laboy, Ephraim Bermudez and colleagues, with an educational maira from [employer]. Thrive Questionnaire Date Thrive assessed: 02/13/24 I am a: Patient What is your living situation today?: I have a steady place to live Within the past 12 months, did the food you bought not last and you didn't have the money to get more?: Never true Within the past 12 months, did you worry whether your food would run out before you got money to buy more?: Never true Do you have trouble paying for medicines?: No Do you have trouble getting transportation to medical appointments?: No Do you have trouble paying your heating and electricity bill?: No Do you have trouble taking care of your child, family member or friend?: No Do you have trouble with day-to-day activities such as bathing, preparing meals, shopping, managing finances, etc.?: No Are you currently unemployed and looking for a job?: No Are you interested in more education?: No Please select the resources that you would like help with: None Currently or been in a relationship where the following occur: no concerns reported THRIVE Score: 0 AUDIT C Alcohol Use Questionnaire (AUDIT-C) 1. How often do you have a drink containing alcohol?: Never 3. How often do you have six or more drinks on one occasion?: Never Total Score: 0 JANET-7 AMB Questionnaire JANET-7 Date JANET - 7 assessed: 02/13/24 Feeling nervous, anxious, or on edge: 0 = Not at all Not being able to stop or control worryin = Not at all Worrying too much about different things: 0 = Not at all Trouble relaxin = Not at all Being so restless that it is hard to sit still: 0 = Not at all Becoming easily annoyed or irritable: 0 = Not at all Feeling afraid as if something awful might happen: 0 = Not at all Total JANET-7 score (0-4 normal; 5-9 mild; 10-14 moderate; 15-21 severe): 0 Source: Developed by Drs. Anders De Guzman, Brooke Laboy, Ephraim Bermudez and colleagues, with an educational maira from [employer]. JANET-7 Assessment Billing JANET-7 Assessment Tool: JANET-7 Assessment 30932 Review of Systems Const Denies chills, Denies fatigue, Denies fever(s), Denies headache(s) and Denies weakness Eyes Denies change in vision ENT Denies dizziness, Denies headache(s), Denies hearing loss, Denies nasal congestion, Denies sinus pain, Denies sinus pressure and Denies sore throat Card Denies chest pain, Denies lightheadedness, Denies dyspnea and Denies other (palpitations) Resp Denies cough, Denies dyspnea and Denies wheezing GI Denies abdominal pain, Denies melena, Denies hematochezia, Denies change in bowel habits, Denies dyspepsia and Denies nausea Denies hematuria and Denies dysuria Musc Details: L knee pain Denies abnormal gait, Denies myalgias, Denies arthralgias, Denies numbness and Denies tingling Skin/Breast Denies rash, Denies unusual bruising and Denies wounds Neuro Denies abnormal gait, Denies dizziness, Denies headache(s), Denies memory loss, Denies numbness, Denies Sensory deficit (Neuro), Denies tingling and Denies weakness Psych Denies anxiety, Denies depression and Denies memory loss Endo Denies cold intolerance, Denies fatigue, Denies heat intolerance and Reports polydipsia Puneet/Lymph Denies easy bleeding and Denies easy bruising Aller/Immun Denies wheezing Physical exam (Primary Care) Vital Signs: Last Vital Signs Pulse 62 02/13/24 08:33 Resp 13 02/13/24 08:33 BP 126/84 02/13/24 08:33 Pulse Ox 100 02/13/24 08:33 Oxygen Delivery Method Room Air 02/13/24 08:33 BMI result Body Mass Index 42.4 Tobacco/Smoking Status: Tobacco use Status Tobacco use date assessed 02/13/24 02/13/24 08:51 Patient Tobacco Use Status Former Tobacco user 02/13/24 08:33 Tobacco use type Cigarette 02/13/24 08:33 e-Cigarette/Vaping Use Never Used 02/13/24 08:33 PHQ-9: PHQ-9 Score PHQ-9: Total score 0 02/13/24 09:27 Depression Screening Interpretation: Negative Thrive Assessment: Date of Thrive Assessment Date Thrive assessed 02/13/24 02/13/24 08:52 Currently or been in a relationship where the following occur: no concerns reported Const General: no acute distress, well developed, alert and awake Nutritional Appearance: obese morbidly obese Orientation/consciousness: patient oriented x3 HENMT Head: Yes normocephalic and Yes atraumatic Ears: hearing grossly normal bilaterally and TM's normal bilaterally General nose exam: Normal external nose present and Normal nares present Mouth: Normal oral and palatal mucosa present and moist mucous membranes Teeth and gingiva: dentition normal Throat: Yes posterior oropharynx normal Eyes General: appearance normal, both eyes and all related structures Pupils: Equal, round and reactive pupils present and Pupil accommodation reflex normal EOM: EOMs intact bilaterally Neck Neck: Yes normal visual inspection, Yes no lymphadenopathy and Yes trachea midline Thyroid: Thyroid normal Carotids: no bruits Lymphatic: no lymphadenopathy noted Chest Chest palpation & inspection: normal inspection of the chest Resp Effort & Inspection: normal respiratory effort Auscultation: clear to auscultation bilaterally Cardio Rate: regular rate Rhythm: regular rhythm Heart sounds: S1 normal heart sound present, S2 normal heart sound present, no gallops, no murmurs and no rubs Bruits: no abdominal aortic bruits and no carotid bruits GI Palpation (GI): No Abdominal aortic bruit present, Soft to palpation, nontender, No hepatosplenomegaly present and No Rebound tenderness present Auscultation: normal bowel sounds General: Yes no CVA tenderness Back/Spine/Pelvis Back: no CVA tenderness Cervical Spine: cervical ROM normal and No Cervical spine tenderness Thoracic/Lumbar Spine: thoraco-lumbar ROM normal, No pain with thoraco-lumbar ROM, No thoracic spinal tenderness and No lumbar spinal tenderness Skin Lesions: no lesions Rashes: no rashes Trauma: no lacerations or abrasions Wounds: no wounds Nails: normal Neuro General: patient oriented x3 Cranial nerves: Yes Equal, round and reactive pupils present Cognition (Neuro): normal cognition Gait exam (Neuro): Normal gait present Motor exam (neuro): 5/5 motor strength present throughout Sensory Exam: No Sensory deficit (Neuro) Deep tendon reflexes (DTR's): Right patellar reflex intensity grade: 2+ and Left patellar reflex intensity grade: 2+ Extrem General: Yes normal to inspection and No edema Psych Appearance: grossly normal Affect: normal affect Attitude: cooperative Thought process: Normal thought process present Results AMB Hemoglobin A1c AMB Hemoglobin A1c 6.5 % Last Edit by Aixa Bojorquez CMA on 02/13/24 09:53 Assessment and Plan Assessment & Plan (1) Adult general medical exam: Code(s): Z00.00 - Encounter for general adult medical examination without abnormal findings Plan: 53-year-old?male?presents?for?complete?physical?exam Encouraged?healthy?diet?with?active?lifestyle?and?plenty?of?exercise?as?tolerate d (2) Postoperative hypothyroidism: Code(s): E89.0 - Postprocedural hypothyroidism Plan: S/P thyroidectomy?secondary?to?papillary?thyroid?cancer Now?on?levothyroxine?and?thyroid?hormone?levels?are?within?normal?limits Continue?current?medication?and?will?follow (3) Essential hypertension: Code(s): I10 - Essential (primary) hypertension Plan: Blood?pressure?is?fairly?well?controlled.??Goal?is?less?than?130/80 Continue?current?medications - no?medication?changes?today (4) Diabetes: Code(s): E11.9 - Type 2 diabetes mellitus without complications Plan: New?diagnosis?of?diabetes. Start?metformin Work?on?a?diet?low?in?sugars?and?starches.??Hydrate?well Will?discuss?further?at?next?visit (5) Knee pain: Code(s): M25.569 - Pain in unspecified knee Plan: Left?knee?pain?and?likely?arthritis?of?joint?with?mild?effusion Check?x-ray Start?physical?therapy Referred?to?Ortho (6) H/O: CVA (cerebrovascular accident): Code(s): Z86.73 - Personal history of transient ischemic attack (TIA), and cerebral infarction without residual deficits Plan: Patient?is?on atorvastatin?40?mg?daily Continue?current?medication (7) Screening for prostate cancer: Code(s): Z12.5 - Encounter for screening for malignant neoplasm of prostate Plan: PSA?was?within?normal?limit (8) Screening for colon cancer: Code(s): Z12.11 - Encounter for screening for malignant neoplasm of colon Plan: Patient?had?a?Cologuard?test?in?May?of?2021. He?was?referred?to?Gastroenterology?but?does?not?seem?to?have?followed?through?w ith?this He?lives?ou t?in?[place]?so?I?am?making?a?referral?to?gastroenterology[facility]in[facility] Orders: Orders AMB Hemoglobin A1c Today E11.9 - Type 2 diabetes mellitus without complications Microalbumin, Random (w Creat) Today E11.9 - Type 2 diabetes mellitus without complications, I10 - Essential (primary) hypertension Lipid Panel Today E11.9 - Type 2 diabetes mellitus without complications, Z00.00 - Encounter for general adult medical examination without abnormal findings UA and rflx microscopic Today E11.9 - Type 2 diabetes mellitus without complications, Z00.00 - Encounter for general adult medical examination without abnormal findings Free T4 (Free Thyroxine) Today E03.9 - Hypothyroidism, unspecified, E11.9 - Type 2 diabetes mellitus without complications TSH reflex Free T4 Today E11.9 - Type 2 diabetes mellitus without complications, Z00.00 - Encounter for general adult medical examination without abnormal findings Triiodothyronine T3 Total Today E03.9 - Hypothyroidism, unspecified, E11.9 - Type 2 diabetes mellitus without complications PT Evaluation and Treatment Today M25.562 - Pain in left knee XR knee LT 3V Today M25.562 - Pain in left knee Comprehensive [place]. Panel Fast Today E11.9 - Type 2 diabetes mellitus without complications, Z00.00 - Encounter for general adult medical examination without abnormal findings Prostate Specific Antigen Scr Today E11.9 - Type 2 diabetes mellitus without complications, Z12.5 - Encounter for screening for malignant neoplasm of prostate Referrals Gastroenterology Referral R19.5 - Other fecal abnormalities, Z12.11 - Encounter for screening for malignant neoplasm of colon Orthopedics Referral M25.562 - Pain in left knee Medications: New metformin 500 mg PO DAILY 90 days 90 tabs 2RF E11.9 - Type 2 diabetes mellitus without complications Coding Level of Care Code Est Pt Level 3 (30560) Est Pt Prev Care 40-64y(90394) Diagnoses Adult general medical exam Z00.00 Postoperative hypothyroidism E89.0 Essential hypertension I10 Diabetes E11.9 Knee pain M25.569 H/O: CVA (cerebrovascular accident) Z86.73 Screening for prostate cancer Z12.5 Screening for colon cancer Z12.11 Additional Codes JANET-7 Assessment Billing - JANET-7 Assessment Tool: JANET-7 Assessment [id number] ([id number])
[2024-02-13 08:33] VITALS: BP 126/84; PULSE 62; RESP 13; O2SAT 100; BMI 42.4
== END 2024-02-13 10:17 | disposition home or self-care (01) ==
PROVIDERS: PCP Family Medicine; Visit Provider Family Medicine
DX: Z00.00 Encounter for general adult medical examination without abnormal findings (principal); E89.0 Postprocedural hypothyroidism; I10 Essential (primary) hypertension; E11.9 Type 2 diabetes mellitus without complications; M25.569 Pain in unspecified knee; Z86.73 Personal history of transient ischemic attack (TIA), and cerebral infarction without residual deficits; Z12.5 Encounter for screening for malignant neoplasm of prostate; Z12.11 Encounter for screening for malignant neoplasm of colon
CPT/HCPCS: 83036; 99396

== ENCOUNTER 2024-02-13 10:57 | Outpatient (REF) | payer OTHER, SELFPAY ==
--- NOTE | ~2024-02-13 | XR_ITS ---
EXAMINATION: XR KNEE, LEFT CLINICAL INFORMATION: Pain in left knee, swelling, no trauma. COMPARISON: None available. TECHNIQUE: Three views of the left knee. FINDINGS: Moderate joint effusion. Small tricompartmental osteophytes. Mild narrowing of the tricompartments. Sclerotic focus overlying the medial femoral condyle, possibly representing a bone island. XR/XR knee LT 3V IMPRESSION: Moderate joint effusion. Mild tricompartmental degenerative changes.
== END 2024-02-13 10:58 | disposition home or self-care (01) ==
LOC: HO.XRAY 10:57
PROVIDERS: PCP Family Medicine; Visit Provider Family Medicine
DX: M25.562 Pain in left knee (principal)
CPT/HCPCS: 73562

== ENCOUNTER 2024-06-06 08:14 | Outpatient (AMB) | payer OTHER, SELFPAY ==
--- NOTE | 2024-06-06 08:30 | A.OFFPC_ITS ---
Vital Signs 06/06/24 08:36 Height 5 ft 6 in Weight 257 lb 6 oz BMI 41.5 BP 126/88 Blood Pressure Location Rt brachial Position Sitting Respiration 16 Pulse 68 Pulse Source Pulse Oximeter Pulse Oximetry (%) 98 Oxygen Delivery Method Room Air Intake Visit Reasons: follow up diabetes Intake Note: Follow up diabetes. Patient is having left knee surgery on 06/19/24 at [facility]. Allergies No Known Allergies Allergy (Verified 06/06/24 08:33) Medication List - Last Reconciled 06/06/24 by Roger Cannon MD acetaminophen 1,000 mg PO Q6H PRN amlodipine 5 mg PO DAILY 90 days aspirin 81 mg PO DAILY atorvastatin 40 mg PO DAILY 90 days cholecalciferol (vitamin D3) (Vitamin D3) 50 mcg PO DAILY levothyroxine 125 mcg PO DAILY lisinopril 20 mg PO DAILY 90 days metformin 500 mg PO DAILY 90 days omeprazole 40 mg (2 x 20 mg) PO DAILY 90 days Tobacco use date assessed: 02/13/24 Dental Screening Dental Screen Date: 02/13/24 HPI follow up diabetes HPI Details Since?for?preoperative?clearance?prior?to? Patient?presents?for?preoperative?clearance?prior?to?knee?surgery Procedure: L knee arthroscopic surgery Date: 06/19/2024 Surgeon: [facility] Anesthesia: General Cardiac?Hx: None Pulmonary?Hx: None Prior?Surgical?Complications: None Prior?Anesthesia?Complications: None Coag?Issues: On Aspirin Functional?[place]: walks 20 min on treadmill 5-6 days a week DM A1c?today?is?5.6% H/o stroke 2014 HPI Comments History of Present Illness Details Documentation assistance for Roger Cannon MD, was provided by Cliff Anderson,? Explosive Expert on 06/06/2024 at 9:06 AM MICHELLE. Atiya, Dr. Cannon, have read, observed, and verified documentation. 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 Father No problems noted. Social History Household Members: Spouse Housing: Apartment Do you presently have visiting nurse or other home services: No Alcohol intake: never Patient Tobacco Use Status: Former Tobacco user Tobacco use type: Cigarette e-Cigarette/Vaping Use: Never Used Second Hand Smoke Exposure: No service: No Current occupational status: employed Current occupation: [employer] Current occupational exposures/hazards: No Cognitive needs: No Hearing needs: No Vision needs: No Questionnaire Thrive Questionnaire Date Thrive assessed: 02/13/24 JANET-7 AMB Questionnaire JANET-7 Date JANET - 7 assessed: 02/13/24 Source: Developed by Drs. Anders De Guzman, Brooke Laboy, Ephraim Bermudez and colleagues, with an educational maira from [email or web address]. Review of Systems Const Denies chills, Denies fatigue, Denies fever(s), Denies headache(s) and Denies weakness ENT Denies dizziness and Denies headache(s) Card Denies chest pain, Denies lightheadedness, Denies dyspnea and Denies other (Palpitations) Resp Denies cough, Denies dyspnea, Denies wheezing and Denies other ( shortness of breath) Musc Denies numbness and Denies tingling Neuro Denies dizziness, Denies headache(s), Denies numbness, Denies tingling, Denies paresthesias and Denies weakness Psych Denies anxiety and Denies depression Endo Denies fatigue Aller/Immun Denies wheezing Physical exam (Primary Care) Vital Signs: Last Vital Signs Pulse 68 06/06/24 08:36 Resp 16 06/06/24 08:36 BP 126/88 06/06/24 08:36 Pulse Ox 98 06/06/24 08:36 Oxygen Delivery Method Room Air 06/06/24 08:36 BMI result Body Mass Index 41.5 Tobacco/Smoking Status: Tobacco use Status Tobacco use date assessed 02/13/24 06/06/24 08:30 Patient Tobacco Use Status Former Tobacco user 08/16/24 08:30 Tobacco use type Cigarette 06/06/24 08:30 e-Cigarette/Vaping Use Never Used 06/06/24 08:30 Thrive Assessment: Date of Thrive Assessment Date Thrive assessed 02/13/24 06/06/24 08:30 Const General: no acute distress and well developed Nutritional Appearance: well nourished and obese morbidly obese Orientation/consciousness: patient oriented x3 HENMA Head: Yes normocephalic and Yes atraumatic Eyes General: appearance normal, both eyes and all related structures Pupils: Equal, round and reactive pupils present EOM: EOMs intact bilaterally Resp Effort & Inspection: normal respiratory effort Auscultation: clear to auscultation bilaterally Cardio Rate: regular rate Rhythm: regular rhythm Heart sounds: S1 normal heart sound present, S2 normal heart sound present, no gallops, no murmurs and no rubs Neuro General: patient oriented x3 and gait normal Cranial nerves: Yes Equal, round and reactive pupils present Psych Affect: normal affect Results AMB Hemoglobin A1c AMB Hemoglobin A1c 5.6 % Last Edit by Do Naranjo CMA on 06/06/24 08:55 Assessment and Plan Assessment & Plan (1) Pre-op exam: Code(s): Z01.818 - Encounter for other preprocedural examination Plan: 53 -year-old?male?with?history?of?diabetes?and?history?of?stroke?presents?for?preop erative?clearance?prior?to?left?arthroscopic?surgery?of?the?knee No?prior?cardiac?or?pulmonary?disease. Cardiac?exam?is?within?normal?limits?and EKG?shows:??Normal?sinus?rhythm,?normal?axis,?normal?intervals,?no?hypertrophy,? no?ST-T-wave?changes; normal?EKG.[id number] Pulmonary?exam?is?within?normal?limits.??He?is?a?former?smoker?years?ago. No?prior?surgical?or?anesthesia?complications. No?coagulopathies?but?patient?is?on?aspirin His?diabetes?is?well?controlled Good?functional?reserve Low/intermediate?risk?patient?for?low?risk?procedure. ?no?contraindications?to?proceeding?with?proposed?procedure He?will?stop?aspirin?prior?to?his?procedure.??He?can?stop?vitamin- D?and?metformin?as?well Resume?the?following?day?or?at?the?discretion?of?his?surgeon. (2) Diabetes: Code(s): E11.9 - Type 2 diabetes mellitus without complications Plan: A1c?5.6%?today.??Controlled.??Goal?is?less?than?7.0% Continue?current?medication?regimen - though?he?will?hold?metformin?on?the?day?of?his?procedure?as?instructed. Orders: Orders Complete Blood Count Auto Diff Today Z00.00 - Encounter for general adult med ical examination without abnormal findings Microalbumin, Random (w Creat) Today I10 - Essential (primary) hypertension AMB Hemoglobin A1c Today E11.9 - Type 2 diabetes mellitus without complications Comprehensive [place]. Panel Fast Today Z00.00 - Encounter for general adult medical examination without abnormal findings Lipid Panel Today Z00.00 - Encounter for general adult medical examination without abnormal findings Prostate Specific Antigen Scr Today Z12.5 - Encounter for screening for malignant neoplasm of prostate UA and rflx microscopic Today Z00.00 - Encounter for general adult medical examination without abnormal findings Free T4 (Free Thyroxine) Today E03.9 - Hypothyroidism, unspecified Triiodothyronine T3 Total Today E03.9 - Hypothyroidism, unspecified Thyroid Stimulating Hormone Today E03.9 - Hypothyroidism, unspecified PT, INR - Anti Coag Today Z01.818 - Encounter for other preprocedural examination Coding Level of Care Code Est Pt Level 3 (50806) Diagnoses Pre-op exam Z01.818 Diabetes E11.9
[2024-06-06 08:36] VITALS: BP 126/88; PULSE 68; RESP 16; O2SAT 98; BMI 41.5
== END 2024-06-06 10:05 | disposition home or self-care (01) ==
PROVIDERS: PCP Family Medicine; Visit Provider Family Medicine
DX: Z01.818 Encounter for other preprocedural examination (principal); E11.9 Type 2 diabetes mellitus without complications
CPT/HCPCS: 83036; 99213

== ENCOUNTER 2024-06-06 09:52 | Outpatient (REF) | payer OTHER, SELFPAY ==
[2024-06-06 11:08] LABS: MANUAL DIFF FLAG NO
[2024-06-06 11:16] LABS: Basophils Absolute Auto 0.1 X10*3/uL (0.0-0.2); Basophils Percent Auto 1.2 % (0-2); Eosinophils Absolute Auto 0.3 X10*3/uL (0.0-0.4); Hematocrit 40.6 % (42.0-52.0); Hemoglobin 13.5 g/dl (14.0-18.0); Imm Gran Abs Auto 0.01 X10*3/uL (0.00-0.03); Imm Gran Pct Auto 0.2 % (0.0-0.4); Lymphocytes Absolute Auto 1.6 X10*3/uL (1.2-4.9); Lymphocytes Percent Auto 23.7 % (20-40); Mean Corpuscular HGB Conc 33.3 g/dl (31.0-36.0); Mean Corpuscular Hemoglobin 28.3 pg (27.0-33.0); Mean Corpuscular Volume 85.1 fL (80.0-98.0); Mean Platelet Volume 10.6 fL (9.4-12.4); Monocytes Absolute Auto 0.8 X10*3/uL (0.1-1.2); Monocytes Percent Auto 12.3 % (2-11); Neutrophils Absolute Auto 3.9 x10*3/uL (2.0-8.3); Neutrophils Percent Auto 58.6 % (45-73); Platelet Count 250 X10*3/uL (160-400); Red Blood Count 4.77 X10*6/uL (4.60-5.80); Red Cell Distribution Width 14.4 % (11.0-16.0); White Blood Count 6.6 X10*3/uL (4.8-10.8)
[2024-06-06 11:55] LABS: Alanine Aminotransferase 63 U/L (0-40); Albumin Level 4.3 g/dL (3.5-5.0); Alkaline Phosphatase 67 U/L (39-117); Anion Gap 12 (12-20); Aspartate Amino Transferase 40 U/L (5-37); Bilirubin Total 0.6 mg/dL (0.0-1.0); Blood Urea Nitrogen 20 mg/dL (9-16); Calcium 9.3 mg/dL (8.4-10.2); Carbon Dioxide 23 mmol/L (22-29); Chloride 110 mmol/L (96-108); Cholesterol 90 mg/dL (<200); Estimated Glomerular Filt Rate > 60; Glucose Fasting 91 mg/dL (60-99); HDL Cholesterol 39 mg/dL (>40); LDL Cholesterol Calculated 40 mg/dL (<100); Potassium 3.9 mmol/L (3.3-5.1); Sodium 141 mmol/L (135-145); Total Protein 7.3 g/dL (6.5-8.0); Triglycerides 59 mg/dL (<150)
[2024-06-06 12:09] LABS: Prostate Specific Antigen Scr 0.87 ng/mL (<0.05-4.0)
[2024-06-06 12:10] LABS: Free T4 (Free Thyroxine) 1.08 ng/dL (0.71-1.85)
[2024-06-06 14:24] LABS: Appearance Urine Turbid; Color Urine Yellow; Glucose Urine UA Negative (Negative); Leukocyte Esterase Urine Negative (Negative); Nitrite Urine Negative (Negative); Specific Gravity - Urine >= 1.030 (1.005-1.025); Urine Blood Negative (Negative); Urine Ketones Negative (Negative); Urine Protein Negative (Neg-Trace)
[2024-06-06 14:52] LABS: Creatinine Urine 348.57 mg/dL; Microalbum/Creatinine Ratio Ur 7.7 ug/mg cr (<30)
[2024-06-07 22:49] LABS: Triiodothyronine T3 Total 88 ng/dL (76-181)
== END 2024-06-06 09:53 | disposition home or self-care (01) ==
LOC: HO.WFDLDS 09:52
PROVIDERS: Visit Provider Family Medicine
DX: I10 Essential (primary) hypertension (principal); Z00.00 Encounter for general adult medical examination without abnormal findings; Z12.5 Encounter for screening for malignant neoplasm of prostate; M25.562 Pain in left knee; E11.9 Type 2 diabetes mellitus without complications; E03.9 Hypothyroidism, unspecified
CPT/HCPCS: 36415; 80053; 80061; 81003; 82043; 82570; 84153; 84439; 84443; 84480; 85025

== ENCOUNTER 2025-03-26 09:26 | Outpatient (AMB) | payer OTHER, SELFPAY ==
--- NOTE | 2025-03-26 09:35 | A.OFFPC_ITS ---
Vital Signs 03/26/25 09:37 Height 5 ft 6 in Weight 280 lb 4 oz BMI 45.2 BP 130/84 Blood Pressure Location Lt brachial Position Sitting Respiration 14 Pulse 76 Pulse Source Pulse Oximeter Temp 97.8 F Temp Source Oral Pulse Oximetry (%) 95 Oxygen Delivery Method Room Air Intake Visit Reasons: f/u diabetes?and?chronic?conditions Intake Note: patient is scheduled for dm follow up and chronic conditions Area Safety Manager Required: No Allergies No Known Allergies Allergy (Verified 03/26/25 09:36) Medication List - Last Reconciled 03/26/25 by Roger Cannon MD acetaminophen 1,000 mg PO Q6H PRN amlodipine 5 mg PO DAILY 90 days aspirin 81 mg PO DAILY atorvastatin 40 mg PO DAILY 90 days cholecalciferol (vitamin D3) (Vitamin D3) 50 mcg PO DAILY levothyroxine 125 mcg PO DAILY lisinopril 20 mg PO DAILY 90 days metformin 500 mg PO DAILY 90 days omeprazole 40 mg (2 x 20 mg) PO DAILY 90 days Tobacco use date assessed: 02/13/24 Dental Screening Dental Screen Date: 02/13/24 HPI f/u diabetes?and?chronic?conditions HPI Details 54 y/o male presents to f/u diabetes, HT N. A1c 6.1%. Pt notes he has not been as consistent with his meds due to abd. bloating. He is on metformin 500mg daily. Pt reports symptoms similar to that of sleep apnea. Blood pressure today 130/84, 76p. He is on lisinopril 20mg, amlodipine 5mg daily. 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 Father No problems noted. Social History Household Members: Spouse Housing: Apartment Do you presently have visiting nurse or other home services: No Alcohol intake: never Patient Tobacco Use Status: Former Tobacco user Tobacco use type: Cigarette e-Cigarette/Vaping Use: Never Used Second Hand Smoke Exposure: No service: No Current occupational status: employed Current occupation: [employer] Current occupational exposures/hazards: No Cognitive needs: No Hearing needs: No Vision needs: No Questionnaire PHQ-9 Over the last 2 weeks, how often have you been bothered by any of the following problems? 1. Little interest or pleasure in doing things: nearly every day 2. Feeling down, depressed, or hopeless: several days 3. Trouble falling or staying asleep, or sleeping too much: nearly every day 4. Feeling tired or having little energy: more than half the days 5. Poor appetite or overeating: nearly every day 6. Feeling bad about yourself - or that you are a failure or have let yourself or your family down: several days 7. Trouble concentrating on things, such as reading the newspaper or watching television: several days 8. Moving or speaking so slowly that other people could have noticed. Or the opposite - being so fidgety or restless that you have been moving around a lot more than usual: nearly every day 9. Thoughts that you would be better off or of hurting yourself in some way: not at all Total score: 17 Source: Developed by Drs. Anders De Guzman, Brooke Laboy, Ephraim Bermudez and colleagues, with an educational maira from [employer]. Thrive Questionnaire Date Thrive assessed: 10/18/24 I am a: Patient What is your living situation today?: I have a place to live, but I am worried about losing it in the future Within the past 12 months, did the food you bought not last and you didn't have the money to get more?: Never true Within the past 12 months, did you worry whether your food would run out before you got money to buy more?: Never true Do you have trouble paying for medicines?: Yes Do you have trouble getting transportation to medical appointments?: Yes Do you have trouble paying your heating and electricity bill?: Yes Do you have trouble taking care of your child, family member or friend?: No Do you have trouble with day-to-day activities such as bathing, preparing meals, shopping, managing finances, etc.?: I choose not to answer this question Are you currently unemployed and looking for a job?: No Are you interested in more education?: No Please select the resources that you would like help with: None Currently or been in a relationship where the following occur: No concerns reported THRIVE Score: 3 AUDIT C Alcohol Use Questionnaire (AUDIT-C) 1. How often do you have a drink containing alcohol?: Never Total Score: 0 JANET-7 AMB Questionnaire JANTE-7 Date JANET - 7 assessed: 02/13/24 Feeling nervous, anxious, or on edge: 2 = More than half the days Not being able to stop or control worryin = Several days Worrying too much about different things: 2 = More than half the days Trouble relaxin = Nearly every day Being so restless that it is hard to sit still: 2 = More than half the days Becoming easily annoyed or irritable: 1 = Several days Feeling afraid as if something awful might happen: 2 = More than half the days Total JANET-7 score (0-4 normal; 5-9 mild; 10-14 moderate; 15-21 severe): 13 Source: Developed by Drs. Anders De Guzman, Brooke Laboy, Ephraim Bermudez and colleagues, with an educational maira from [employer]. Review of Systems Const Denies chills, Denies fatigue, Denies fever(s), Denies headache(s) and Denies weakness ENT Denies dizziness and Denies headache(s) Card Denies dyspnea Resp Denies cough, Denies dyspnea, Denies wheezing and Denies other (shortness of breath) Musc Denies numbness and Denies tingling Neuro Denies dizziness, Denies headache(s), Denies numbness, Denies tingling and Denies weakness Psych Denies anxiety and Denies depression Endo Denies fatigue Aller/Immun Denies wheezing Physical exam (Primary Care) Vital Signs: Last Vital Signs Temp 97.8 F 03/26/25 09:37 Pulse 76 03/26/25 09:37 Resp 14 03/26/25 09:37 BP 130/84 03/26/25 09:37 Pulse Ox 95 03/26/25 09:37 Oxygen Delivery Method Room Air 03/26/25 09:37 BMI result Body Mass Index 45.2 Tobacco/Smoking Status: Tobacco use Status Tobacco use date assessed 02/13/24 03/26/25 09:38 Patient Tobacco Use Status Former Tobacco user 03/26/25 09:38 Tobacco use type Cigarette 03/26/25 09:38 e-Cigarette/Vaping Use Never Used 03/26/25 09:38 PHQ-9: PHQ-9 Score PHQ-9: Total score 17 03/26/25 09:38 Thrive Assessment: Date of Thrive Assessment Date Thrive assessed 10/18/24 03/26/25 09:38 Currently or been in a relationship where the following occur: No concerns reported Const General: well developed; No acute distress Nutritional Appearance: well nourished and obese morbidly obese Orientation/consciousness: patient oriented x3 HENMT Head: Yes normocephalic and Yes atraumatic Eyes General: appearance normal, both eyes and all related structures Pupils: Equal, round and reactive pupils present EOM: EOMs intact bilaterally Resp Effort & Inspection: normal respiratory effort Neuro General: patient oriented x3 and gait normal Cranial nerves: Yes Equal, round and reactive pupils present Psych Affect: normal affect Coding Level of Care Code Est Pt Level 4 (47418) Diagnoses Diabetes E11.9 Essential hypertension I10 Sleep apnea G47.30 Assessment & Plan Assessment & Plan (1) Diabetes: Code(s): E11.9 - Type 2 diabetes mellitus without complications Category: Medical Plan: A1c?6.1%?on?metformin?500?mg?daily.??Well?controlled.??Goal?is?less?than?7.0% Patient?notes?that?he?is?getting?bloating?from?metformin Will?have?him?take?metformin?250?mg?daily Keep?working?on?weight?loss?and?diabetic?diet (2) Essential hypertension: Code(s): I10 - Essential (primary) hypertension Category: Medical Plan: Blood?pressure?is?controlled.??Goal?is?less?than?140/90 Continue?current?medications (3) Sleep apnea: Code(s): G47.30 - Sleep apnea, unspecified Category: Medical Plan: Snoring?and?would?rather?than?his?sleep?an?un?restful?sleep.??Also?severe?daytim e?sleepiness?and?fatigue. Likely?sleep?apnea Referred?to?Sleep?Medicine Orders: Orders AMB Hemoglobin A1c Today E11.9 - Type 2 diabetes mellitus without complications Referrals Sleep Medicine Referral G47.10 - Hypersomnia, unspecified Medications: Changed From metformin 500 mg PO DAILY 90 days 90 tabs 0RF E11.9 - Type 2 diabetes mellitus without complications To metformin 250 mg (1/2 x 500 mg) PO DAILY 90 days 45 tabs 0RF E11.9 - Type 2 diabetes mellitus without complications
[2025-03-26 09:37] VITALS: BP 130/84; PULSE 76; RESP 14; TEMP 36.6; O2SAT 95; BMI 45.2
== END 2025-03-26 10:03 | disposition home or self-care (01) ==
LOC: HO.HMCFM 09:27
PROVIDERS: PCP Family Medicine; Visit Provider Family Medicine
DX: E11.9 Type 2 diabetes mellitus without complications (principal); I10 Essential (primary) hypertension; G47.30 Sleep apnea, unspecified

== ENCOUNTER → 2025-03-26 09:26 | Outpatient (BNVA) | payer OTHER, SELFPAY | PROVIDERS: PCP Family Medicine; Visit Provider Family Medicine | DX: E11.9 Type 2 diabetes mellitus without complications (principal); I10 Essential (primary) hypertension; R14.0 Abdominal distension (gaseous); G47.30 Sleep apnea, unspecified; G47.10 Hypersomnia, unspecified | CPT/HCPCS: 99212 ==

== ENCOUNTER 2025-07-08 10:50 | Outpatient (AMB) | payer OTHER, SELFPAY ==
--- NOTE | 2025-07-08 11:05 | MHC.PC.OV ---
Vital Signs 07/08/25 11:07 07/08/25 11:18 Height 5 ft 6 in Weight 291 lb 6 oz BMI 47.0 BP 152/100 H 150/100 H Blood Pressure Location Rt brachial Lt brachial Position Sitting Sitting Respiration 16 Pulse 70 Pulse Source Pulse Oximeter Temp 97.9 F Temp Source Temporal Artery Scan Pulse Oximetry (%) 95 Oxygen Delivery Method Room Air Intake Visit Reasons: f/u diabetes, HTN, resched Intake Note: Carlos presents in the office today for a follow up to his diabetes and hypertension. Allergies No Known Allergies Allergy (Verified 07/08/25 11:05) Medication List - Last Reconciled 07/08/25 by Roger Cannon MD acetaminophen 1,000 mg PO Q6H PRN amlodipine 5 mg PO DAILY 90 days aspirin 81 mg PO DAILY atorvastatin 40 mg PO DAILY 90 days cholecalciferol (vitamin D3) (Vitamin D3) 50 mcg PO DAILY hydrochlorothiazide 25 mg PO QAM 90 days levothyroxine 125 mcg PO DAILY lisinopril 20 mg PO DAILY 90 days metformin 250 mg (1/2 x 500 mg) PO DAILY 90 days omeprazole 40 mg (2 x 20 mg) PO DAILY 90 days Tobacco use date assessed: 07/08/25 Dental Screening Dental Screen Date: 07/08/25 Did you have a dental visit in the last 12 months?: No Did you have a dental problem in the last 6 months where you did not have access to dental care?: No Was dental information given to patient?: Patient declined HPI f/u diabetes, HTN, resched HPI Details 54 y/o male presents to f/u diabetes, HTN. Had eased up on his metformin last office visit which he notes he has helped with bloating. He is on metformin 250mg daily. A1c today 6.5%. BP today 152/100, 70p. He is on lisinopril 20mg daily, amlodipine 5mg daily. Reports ongoing complaints about his weight. HPI Comments History of Present Illness Details Documentation assistance for Roger Cannon MD, was provided by Cliff Anderson, Brands Editor on at 11:34 AM EST. I, Dr. Cannon, have read, observed, and verified documentation. 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 Father No problems noted. Social History (Updated 07/08/25 @ 11:07 by Nusrat Horne CMA) Household Members: Spouse Housing: Apartment Do you presently have visiting nurse or other home services: No Alcohol intake: never Patient Tobacco Use Status: Former Tobacco user Tobacco use type: Cigarette e-Cigarette/Vaping Use: Never Used Second Hand Smoke Exposure: No service: No Current occupational status: employed Current occupation: [employer] Current occupational exposures/hazards: No Cognitive needs: No Hearing needs: No Vision needs: No Questionnaire Thrive Questionnaire Date Thrive assessed: 03/26/25 I am a: Patient What is your living situation today?: I have a place to live, but I am worried about losing it in the future Within the past 12 months, did the food you bought not last and you didn't have the money to get more?: Never true Within the past 12 months, did you worry whether your food would run out before you got money to buy more?: Never true Do you have trouble paying for medicines?: Yes Do you have trouble getting transportation to medical appointments?: Yes Do you have trouble paying your heating and electricity bill?: Yes Do you have trouble taking care of your child, family member or friend?: No Do you have trouble with day-to-day activities such as bathing, preparing meals, shopping, managing finances, etc.?: I choose not to answer this question Are you currently unemployed and looking for a job?: No Are you interested in more education?: No Please select the resources that you would like help with: None Currently or been in a relationship where the following occur: No concerns reported THRIVE Score: 3 JANET-7 AMB Questionnaire JANET-7 Date JANET - 7 assessed: 02/13/24 Source: Developed by Leno Bautistaet B.W. Benoit, Ephraim Bermudez and colleagues, with an educational maira from [employer]. Review of Systems Const Denies chills, Denies fatigue, Denies fever(s), Denies headache(s) and Denies weakness ENT Denies dizziness and Denies headache(s) Card Denies dyspnea Resp Denies cough, Denies dyspnea, Denies wheezing and Denies other (shortness of breath) Musc Denies numbness and Denies tingling Neuro Denies dizziness, Denies headache(s), Denies numbness, Denies tingling and Denies weakness Psych Denies anxiety and Denies depression Endo Denies fatigue Aller/Immun Denies wheezing Physical exam (Primary Care) Vital Signs: Last Vital Signs Temp 97.9 F 07/08/25 11:07 Pulse 70 07/08/25 11:07 Resp 16 07/08/25 11:07 BP 150/100 H 07/08/25 11:18 Pulse Ox 95 07/08/25 11:07 Oxygen Delivery Method Room Air 07/08/25 11:07 BMI result Body Mass Index 47.0 Tobacco/Smoking Status: Tobacco use Status Tobacco use date assessed 07/08/25 07/08/25 11:12 Patient Tobacco Use Status Former Tobacco user 07/08/25 11:07 Tobacco use type Cigarette 07/08/25 11:07 e-Cigarette/Vaping Use Never Used 07/08/25 11:07 Thrive Assessment: Date of Thrive Assessment Date Thrive assessed 03/26/25 07/08/25 11:05 Currently or been in a relationship where the following occur: No concerns reported Const General: well developed; No acute distress Nutritional Appearance: well nourished and obese morbidly obese Orientation/consciousness: patient oriented x3 [facility] Head: Yes normocephalic and Yes atraumatic Eyes General: appearance normal, both eyes and all related structures Pupils: Equal, round and reactive pupils present EOM: EOMs intact bilaterally Resp Effort & Inspection: normal respiratory effort Neuro General: patient oriented x3 and gait normal Cranial nerves: Yes Equal, round and reactive pupils present Psych Affect: normal affect Results AMB Hemoglobin A1c AMB Hemoglobin A1c 6.5 % Last Edit by Nusrat Horne CMA on 07/08/25 11:20 Results Reviewed Results Reviewed: Laboratory Last Values Hgb A1c (Clinic) 6.5 % (4.0-6.0) H 07/08/25 11:13 Coding Level of Care Code Est Pt Level 4 (34554) Diagnoses Diabetes E11.9 Essential hypertension I10 Morbid obesity E66.01 Assessment & Plan Assessment & Plan (1) Diabetes: Code(s): E11.9 - Type 2 diabetes mellitus without complications Category: Medical Plan: A1c climbed to 6.5 after reducing metformin due to bloating. Still controlled. Goal is less than 7.0% Continue current medication Patient notes that he drinks lots of soda and I recommend stop this (2) Essential hypertension: Code(s): I10 - Essential (primary) hypertension Category: Medical Plan: Blood pressure is too high. Goal is less than 130/80 Adding hydrochlorothiazide and he will continue amlodipine and lisinopril. Watch salt and sodium in diet (3) Morbid obesity: Code(s): E66.01 - Morbid (severe) obesity due to excess calories Category: Medical Plan: Morbid obesity and patient is struggling to lose weight Has gained around 10 lb since his last visit Referring him to weight management program at [facility] Orders: Orders AMB Hemoglobin A1c Today R73.01 - Impaired fasting glucose Referrals Medical Weight Management Referral E11.9 - Type 2 diabetes mellitus without complications, E66.01 - Morbid (severe) obesity due to excess calories Medications: New hydrochlorothiazide 25 mg PO QAM 90 tabs 4RF 90 days
[2025-07-08 11:07] VITALS: BP 152/100; PULSE 70; RESP 16; TEMP 36.6; O2SAT 95; BMI 47.0
[2025-07-08 11:18] VITALS: BP 150/100
== END 2025-07-08 11:47 | disposition home or self-care (01) ==
LOC: HO.HMCFM 10:51
PROVIDERS: PCP Family Medicine; Visit Provider Family Medicine
DX: E11.9 Type 2 diabetes mellitus without complications (principal); E66.01 Morbid (severe) obesity due to excess calories; Z68.42 Body mass index [BMI] 45.0-49.9, adult; I10 Essential (primary) hypertension; R73.01 Impaired fasting glucose

== ENCOUNTER → 2025-07-08 10:50 | Outpatient (BNVA) | payer OTHER, SELFPAY | PROVIDERS: PCP Family Medicine; Visit Provider Family Medicine | DX: I10 Essential (primary) hypertension (principal); E11.9 Type 2 diabetes mellitus without complications; E66.01 Morbid (severe) obesity due to excess calories; Z79.84 Long term (current) use of oral hypoglycemic drugs; Z68.42 Body mass index [BMI] 45.0-49.9, adult | CPT/HCPCS: 83036; 99212 ==